=== PATIENT | female | born 1990 | race Caucasian/White ===

== ENCOUNTER → 2016-04-19 | Outpatient (CLI) | payer BC ==
[2016-04-19 09:53] LABS: MEAN CORPUSCULAR HEMOGLOBIN 30.5 pg (27.0-33.0); MEAN CORPUSCULAR HGB CONC 33.8 g/dl (32.0-36.5); MEAN CORPUSCULAR VOLUME 90.2 fl (80.0-96.0); WHITE BLOOD COUNT 5.2 K/mm3 (4.0-10.0)
[2016-04-19 10:15] LABS: ALBUMIN 3.8 GM/DL (3.2-5.2); ALBUMIN/GLOBULIN RATIO 1.36 (1.00-1.93); ALKALINE PHOSPHATASE 76 U/L (45-117); ALT/SGPT 25 U/L (12-78); ANION GAP 7 MEQ/L (8-16); AST/SGOT 18 U/L (15-37); BILIRUBIN,TOTAL 0.4 MG/DL (0.2-1.0); BLOOD UREA NITROGEN 10 MG/DL (7-18); CALCIUM LEVEL 8.8 MG/DL (8.5-10.1); CARBON DIOXIDE LEVEL 29 MEQ/L (21-32); CHLORIDE LEVEL 107 MEQ/L (98-107); CREATININE FOR GFR 0.72 MG/DL (0.55-1.02); GLOMERULAR FILTRATION RATE > 60.0 (>60); GLUCOSE, FASTING 79 MG/DL (70-105); HCG, SERUM QUANTITATIVE < 1.0 MIU/ML; POTASSIUM SERUM 3.9 MEQ/L (3.5-5.1); SODIUM LEVEL 143 MEQ/L (136-145); TOTAL PROTEIN 6.6 GM/DL (6.4-8.2)
== END ==
LOC: M LAB 09:27
PROVIDERS: ATTEND Obstetrics & Gynecology Reproductive Endocrinology
DX: N97.9 Female infertility, unspecified (principal)

== ENCOUNTER → 2016-09-08 | Outpatient (CLI) | payer BC ==
[~2016-09-08] MED LIST: AMOX875T2 PO; CHERSYP3 PO; GUAI5ELAC PO; IBUP-1114 PO; LEVA1TAB PO; LEVO250T12 PO; MONT10TA2 PO; NICO14PA TD; PRED10TA2 PO; SYMB16INH INH; TRAZO50TA PO
[2016-09-08 11:32] LABS: ESTRADIOL 1468.3 PG/ML; PROGESTERONE 33.2 NG/ML
== END ==
LOC: M LAB 08:18
PROVIDERS: ATTEND Obstetrics & Gynecology Reproductive Endocrinology
DX: N97.9 Female infertility, unspecified (principal)

== ENCOUNTER → 2016-09-13 | Outpatient (CLI) | payer BC ==
[2016-09-13 08:34] LABS: HCG, SERUM QUANTITATIVE < 1.0 MIU/ML
== END ==
LOC: M LAB 07:39
PROVIDERS: ATTEND Obstetrics & Gynecology Reproductive Endocrinology
DX: N97.9 Female infertility, unspecified (principal)

== ENCOUNTER 2016-11-13 18:07 | Emergency (ER) | payer BC ==
[~2016-11-13] VITALS: Ht 157.5 cm; Wt 84.1 kg
[2016-11-13] MEDS ORDERED: IBUP-1114 PO (18:19)
[2016-11-13] MEDS ORDERED: IPRATROPIUM 0.5MG/ALBUTEROL 2.5MG INH SOL UD 3ML (DUONEB)(J7620) NEB ONE (19:30)
[2016-11-13] MEDS ORDERED: ACETAMINOPHEN TAB 650MG DOSE (2X325MG) PO ONE (19:30)
[2016-11-13] MEDS ORDERED: LEVA1TAB PO (20:10)
[2016-11-13] MEDS ORDERED: CHERSYP3 PO (20:10)
[2016-11-13] MEDS ORDERED: LevoFLOXacin 250 MG TABLET PO ONE (20:15)
[2016-11-13 20:19] VITALS: BP 166/94
--- NOTE | 2016-11-13 20:49 | REP ---
Clinical: Cough and fever . Comparison: 11/08/2015 . Technique: PA and lateral. Findings: The mediastinum and cardiac silhouette are normal. The lung roca are clear and without acute consolidation, effusion, or pneumothorax. The skeletal structures are intact and normal. Impression: 1. No acute cardiopulmonary process. Signed by Jeff Thompson MD 11/13/2016 08:40 P
== END 2016-11-13 20:23 | disposition home or self-care (01) ==
LOC: M ED 18:07
DX: J06.9 Acute upper respiratory infection, unspecified (principal); B34.9 Viral infection, unspecified; J45.909 Unspecified asthma, uncomplicated; Z79.899 Other long term (current) drug therapy; F17.210 Nicotine dependence, cigarettes, uncomplicated

== ENCOUNTER 2016-11-17 20:34 | Inpatient (IN) | payer BC ==
[~2016-11-17] VITALS: Ht 157.5 cm; Wt 91.4 kg
[~2016-11-17 20:34] MED LIST changes: -AMOX875T2 PO; -GUAI5ELAC PO; -LEVO250T12 PO; -MONT10TA2 PO; -NICO14PA TD; -PRED10TA2 PO; -SYMB16INH INH; -TRAZO50TA PO
[2016-11-17] MEDS ORDERED: methylPREDNISolone INJ 125 MG/2 ML VIAL (J2930) IV ONE (21:00)
[2016-11-17] MEDS: IPRATROPIUM 0.5MG/ALBUTEROL 2.5MG INH SOL UD 3ML (DUONEB)(J7620) NEB SCH ×2 (21:20→21:21)
[2016-11-17 21:26] LABS: BASO # 0.1 K/mm3 (0.0-0.2); BASO % 1.5 % (0.0-1.0); EOS # 0.3 K/mm3 (0.0-0.50); EOS % 6.8 % (0.0-3.0); LARGE UNSTAINED CELL # 0.1 K/mm3 (0.0-0.4); LARGE UNSTAINED CELL % 1.9 % (0.0-4.0); LYMPH # 1.9 K/mm3 (1.5-6.5); LYMPH % 37.9 % (24.0-44.0); MEAN CORPUSCULAR HEMOGLOBIN 30.3 pg (27.0-33.0); MEAN CORPUSCULAR HGB CONC 33.8 g/dl (32.0-36.5); MEAN CORPUSCULAR VOLUME 89.8 fl (80.0-96.0); MONO # 0.3 K/mm3 (0.0-0.8); MONO % 6.4 % (0.0-5.0); NEUTROPHILS # 2.2 K/mm3 (1.8-7.7); NEUTROPHILS % 45.6 % (36.0-66.0); PLATELET COUNT, AUTOMATED 267 k/mm3 (150-450); RED CELL DISTRIBUTION WIDTH 12.1 % (11.5-14.5); WHITE BLOOD COUNT 4.7 K/mm3 (4.0-10.0)
[2016-11-17 21:39] LABS: ANION GAP 6 MEQ/L (8-16); BLOOD UREA NITROGEN 10 MG/DL (7-18); CALCIUM LEVEL 8.8 MG/DL (8.5-10.1); CARBON DIOXIDE LEVEL 29 MEQ/L (21-32); CHLORIDE LEVEL 103 MEQ/L (98-107); CREATININE FOR GFR 0.69 MG/DL (0.55-1.02); GLOMERULAR FILTRATION RATE > 60.0 (>60); GLUCOSE, FASTING 114 MG/DL (70-105); MAGNESIUM LEVEL 2.1 MG/DL (1.8-2.4); POTASSIUM SERUM 3.7 MEQ/L (3.5-5.1); SODIUM LEVEL 138 MEQ/L (136-145)
[2016-11-17] MEDS ORDERED: ISOVUE-370 76% 100ML VIAL (Q9967) As Ordered ONE (22:08)
--- NOTE | 2016-11-17 22:36 | REP ---
Clinical: Shortness of wheezing and cough . Technique: Axial contrast enhanced images from the thoracic inlet to the upper abdomen using 100 ml Isovue 370 intravenous contrast material with multiplanar re-formations. Findings: Satisfactory enhancement of the pulmonary vasculature is achieved and no filling defects are identified to suggest pulmonary embolus. Moderate bilateral lower to focal alveolar infiltrates and reactive adenopathy is consistent with multifocal pneumonia. Tracheobronchial tree is patent. No pleural effusion or pneumothorax. Further evaluation of the mediastinum demonstrates normal thoracic aorta, heart and pericardium. Surrounding musculoskeletal structures intact Impression: No evidence for pulmonary embolus. Multifocal pneumonia with reactive adenopathy. Signed by Jeff Thompson MD 11/17/2016 10:28 P
[2016-11-18] MEDS ORDERED: LEVO250T12 PO
[2016-11-18] MEDS ORDERED: GUAI5ELAC PO
[2016-11-18] MEDS ORDERED: ALBUTEROL SULFATE 2.5 MG/0.5 ML INH NEB SOLN NEB PRN
[2016-11-18 00:36] VITALS: O2SAT 94
[2016-11-18 00:45] VITALS: BP 123/71
[2016-11-18 00:54] LABS: CONTROL LINE INT CTR LINE PRESENT; HIV SCRN NEGATIVE (NEGATIVE); HIV SCRN1 NEGATIVE (NEGATIVE)
[2016-11-18] MEDS: AZITHROMYCIN INJ 500 MG, VIAL MATE ADAPTER 1 EACH in D5W 250 ML IV SCH (01:08)
--- NOTE | 2016-11-18 01:58 | HPE ---
DATE OF ADMISSION: 11/17/2016 PRIMARY CARE PROVIDER: None. HISTORY OF PRESENT ILLNESS: This patient is a 26-year-old female with a past medical history significant for frequent bronchitis and pneumonia, presented to [facility] on 11/17/2016 for persistent shortness of breath. Patient started having fever and shortness of breath and she came to [facility] on 11/12/2016 for evaluation and patient was diagnosed with bronchitis and the patient was discharged home with Levaquin. For the past several days patient has been taking her Levaquin as instructed; however, patient still continued to have shortness of breath, more significant during exertion. Fever resolved and no chills. Denied any chest pain. Denies any other associated symptoms. Patient denies any recent hospitalization or visiting any clinic or shelter. ALLERGIES: No known drug allergies. PAST MEDICAL HISTORY: Frequent bronchitis and urinary tract infection (UTI). Multiple episodes per year. PAST SURGICAL HISTORY: Bilateral fallopian tube removal in April 2016. SOCIAL HISTORY: Patient smoked a half a pack daily for 8 years. No alcohol use. No recreational drug use. HOME MEDICATIONS: - ibuprofen as needed OBJECTIVE: VITAL SIGNS: Temperature is 97.9, pulse 105, respirations 18, blood pressure 132/80, pulse oximetry is 98% in room air. GENERAL: No sign of acute distress. Alert and oriented times three. HEENT: Normocephalic, atraumatic. Extraocular motor grossly intact. CARDIOVASCULAR: Positive S1, S2, regular rate. LUNGS: Positive bilateral wheezes appreciated. There are fine crackles. ABDOMEN: Soft, nontender, nondistended, bowel sounds present. No rebound. No guarding. EXTREMITIES: No edema. No cyanosis. NEUROLOGICAL: Sensation to fine touch grossly intact. Muscle strength 5/5. LABORATORY DATA: WBC 4.7, hemoglobin 15.2, hematocrit 45.1, platelet count is 267. Sodium is 138, potassium 3.7, chloride 103, carbon dioxide is 29, BUN 10, creatinine 0.69, GFR greater than 60, fasting glucose 114, calcium 8.8, magnesium 2.1. Microbiology: None. IMAGING STUDIES: CT angiogram of the chest shows no evidence of PE. Multifocal pneumonia with reactive adenopathy. ASSESSMENT AND PLAN: 1. Multifocal pneumonia, community acquired. Patient failed on outpatient Levaquin therapy. Will start a trial of Rocephin, azithromycin. Will also follow with a sputum culture and respiratory panel. Patient will have breathing treatments as needed. 2. History of frequent bronchitis and pneumonia. Will follow with HIV testing. 3. Deep venous thrombosis (DVT) prophylaxis. On Lovenox. edited: 11/19/2016 [id number] tkf USAMA
[2016-11-18] MEDS: cefTRIAXone SOD 1 GM in D5W MINI-BAG PLUS 50 ML IV SCH ×2 (02:26→13:37)
[2016-11-18] MEDS: ACETAMINOPHEN TAB 650MG DOSE (2X325MG) PO PRN ×2 (05:53→10:10)
[2016-11-18 06:00] VITALS: BP 114/61
[2016-11-18 06:59] LABS: MEAN CORPUSCULAR HEMOGLOBIN 30.7 pg (27.0-33.0); MEAN CORPUSCULAR HGB CONC 34.8 g/dl (32.0-36.5); MEAN CORPUSCULAR VOLUME 88.3 fl (80.0-96.0); RED CELL DISTRIBUTION WIDTH 11.7 % (11.5-14.5); WHITE BLOOD COUNT 3.2 K/mm3 (4.0-10.0)
[2016-11-18 07:12] LABS: ANION GAP 8 MEQ/L (8-16); BLOOD UREA NITROGEN 8 MG/DL (7-18); CALCIUM LEVEL 8.7 MG/DL (8.5-10.1); CARBON DIOXIDE LEVEL 25 MEQ/L (21-32); CHLORIDE LEVEL 103 MEQ/L (98-107); CREATININE FOR GFR 0.65 MG/DL (0.55-1.02); GLOMERULAR FILTRATION RATE > 60.0 (>60); GLUCOSE, FASTING 143 MG/DL (70-105); POTASSIUM SERUM 4.1 MEQ/L (3.5-5.1); SODIUM LEVEL 136 MEQ/L (136-145)
--- NOTE | 2016-11-18 07:50 | REP ---
Clinical: shortness of breath. Wheezing.. Comparison: 11/13/2016. Technique: PA and lateral. Findings: The mediastinum and cardiac silhouette are normal. The lung roca demonstrate bibasilar infiltrates/atelectasis without effusion, or pneumothorax. The skeletal structures are intact and normal. Impression: 1. Bibasilar infiltrate/atelectasis Signed by Jeff Thompson MD 11/18/2016 07:42 A
[2016-11-18] MEDS: ENOXAPARIN 40 MG/0.4 ML SYRINGE (J1650) SC SCH (08:50)
[2016-11-18] MEDS ORDERED: IPRATROPIUM 0.5MG/ALBUTEROL 2.5MG INH SOL UD 3ML (DUONEB)(J7620) NEB PRN (12:30)
[2016-11-18] MEDS: IPRATROPIUM 0.5MG/ALBUTEROL 2.5MG INH SOL UD 3ML (DUONEB)(J7620) NEB SCH ×2 (13:19→20:34)
[2016-11-18 14:00] VITALS: BP 143/78
--- NOTE | 2016-11-18 17:28 | IPN ---
DATE: 11/18/2016 Patient was admitted overnight. Continues to report cough. Denies any fevers or chills. Continues to report generalized weakness. VITAL SIGNS: Temperature 98.1, pulse 97, respirations 18, blood pressure 143/78, pulse oximetry 97% on room air. LABORATORY DATA: WBC 3.2, hemoglobin and hematocrit 14.4/41.3, platelets 273. Chemistry: Sodium 136, potassium 4.1, chloride 103, bicarbonate 25, BUN 8, creatinine 0.65. C-reactive protein 1.01. PHYSICAL EXAMINATION: GENERAL: Patient alert and oriented times three in no acute distress. HEENT: Normocephalic, atraumatic. PULMONARY: Bilateral wheezes with fine crackles bilateral. ABDOMEN: Soft and nontender. Positive bowel sounds. EXTREMITIES: No clubbing, cyanosis, or edema. ASSESSMENT AND PLAN: This is a 26-year-old female patient with underlying medical history of frequent bronchitis, smoker, presented with persistent cough, having fevers a couple of days ago but have subsequently resolved. Failure to improve with Levaquin. Found to have multifocal infiltrates with lymphadenopathy. 1. Multifocal pneumonia, pulmonary infiltrates with persistent cough. Possible differentials include multifocal pneumonia. Patient's calcium is negative but possible sarcoid, asthma exacerbation, eosinophilic pneumonia. Will get IgE levels, Solu-Medrol, Rocephin, and Zithromax. Doubtful patient has bacterial infection. Respiratory panel has been negative. Consulted public address system mechanic, Dr. Bashir. Doubtful bacterial pneumonia given erythrocyte sedimentation rate (ESR), C-reactive protein (CRP) are minimal. Followup cultures. Continue antibiotics and steroids for now. Followup IgE levels and follow pulmonary consultations, nebulizer treatment. 2. Smoking. Counseling provided. 3. History of frequent bronchitis and pneumonia. Followup pulmonology for further recommendation. HIV testing. 4. Deep vein thrombosis (DVT) prophylaxis. Lovenox subcutaneous. DISPOSITION PLANNING: Pending clinical improvement, pulmonary consultation, and further workup.
[2016-11-18] MEDS: methylPREDNISolone INJ 125 MG/2 ML VIAL (J2930) IV SCH (17:45)
[2016-11-18 19:30] LABS: IMMUNOGLOBULIN E 57.7 IU/ML (<100)
[2016-11-18 20:10] VITALS: BP 138/80
[2016-11-19] MEDS: AZITHROMYCIN INJ 500 MG, VIAL MATE ADAPTER 1 EACH in D5W 250 ML IV SCH (00:52)
[2016-11-19] MEDS: methylPREDNISolone INJ 125 MG/2 ML VIAL (J2930) IV SCH ×2 (02:23→10:34)
[2016-11-19] MEDS: cefTRIAXone SOD 1 GM in D5W MINI-BAG PLUS 50 ML IV SCH ×2 (02:23→14:19)
[2016-11-19] MEDS: IPRATROPIUM 0.5MG/ALBUTEROL 2.5MG INH SOL UD 3ML (DUONEB)(J7620) NEB SCH ×5 (02:34→20:06)
[2016-11-19 05:55] VITALS: BP 120/67
[2016-11-19 06:49] LABS: BASO % 0.2 % (0.0-1.0); EOS % 0.1 % (0.0-3.0); LARGE UNSTAINED CELL # 0.2 K/mm3 (0.0-0.4); LARGE UNSTAINED CELL % 2.4 % (0.0-4.0); LYMPH # 0.9 K/mm3 (1.5-6.5); LYMPH % 11.2 % (24.0-44.0); MEAN CORPUSCULAR HGB CONC 34.4 g/dl (32.0-36.5); MONO # 0.2 K/mm3 (0.0-0.8); MONO % 2.3 % (0.0-5.0); NEUTROPHILS # 6.4 K/mm3 (1.8-7.7); NEUTROPHILS % 83.7 % (36.0-66.0); PLATELET COUNT, AUTOMATED 290 k/mm3 (150-450); RED CELL DISTRIBUTION WIDTH 11.9 % (11.5-14.5); WHITE BLOOD COUNT 7.7 K/mm3 (4.0-10.0)
[2016-11-19 07:10] LABS: ANION GAP 11 MEQ/L (8-16); BLOOD UREA NITROGEN 10 MG/DL (7-18); CALCIUM LEVEL 8.3 MG/DL (8.5-10.1); CARBON DIOXIDE LEVEL 23 MEQ/L (21-32); CHLORIDE LEVEL 108 MEQ/L (98-107); CREATININE FOR GFR 0.65 MG/DL (0.55-1.02); GLOMERULAR FILTRATION RATE > 60.0 (>60); GLUCOSE, FASTING 124 MG/DL (70-105); SODIUM LEVEL 142 MEQ/L (136-145)
[2016-11-19] MEDS: ENOXAPARIN 40 MG/0.4 ML SYRINGE (J1650) SC SCH (08:26)
[2016-11-19] MEDS ORDERED: INFLUENZA QUADRIVALENT PF VACCINE 0.5ML SYRINGE (90686) IM ONE (09:00)
--- NOTE | 2016-11-19 12:01 | IPNPDOC ---
Date Seen The patient was seen on 11/19/16. Progress Note SUBJECTIVE: Patient is a 26-year-old female with bilateral lower and focal pulmonary infiltrates. Patient is evaluated at bedside this morning. She has no acute complaints overnight. Denies joint pain, rashes, dry eyes, dry mouth, numbness, tingling. She reports that since her breathing treatments she feels as if she is able to breath a bit easier. She admits to expectorating mucous, but sputum culture returned as negative. She denies a confirmed diagnosis of asthma and admits to only using her albuterol inhaler approximately twice a year when this type of exacerbation occurs. Admits to a paternal family history of rheumatoid arthritis. No leukocytosis or fever. HIV is negative as is the respiratory panel and blood culture. Evaluating for possible underlying autoimmune diseases. Pulmonology has been consulted and we appreciate their continued assistance. Denies ever being evaluated by an developmental therapist. OBJECTIVE PHYSICAL EXAMINATION: VITAL SIGNS: Please see below. GENERAL: Well nourished, well developed female, appears stated age, no acute distress, alert and conversant HEENT: Atraumatic, normocephalic, PERRL, EOMI, oral mucosa appears pink and moist, nasal septum appears midline, nares are patent CARDIOVASCULAR: Regular rate and rhythm, normal S1 and S2, no murmur, rub, click RESPIRATORY: Expiratory wheezes appreciated medially bilaterally, fine crackles appreciated along the lower lung lobes bilaterally, adequate airway excursion in the upper lung lobes bilaterally ABDOMINAL: Soft, non-tender, non-distended, bowel sounds appreciated EXTREMITIES: Peripheral pulses appreciated in upper and lower extremities bilaterally, equal, symmetrical, +2/4, without edema NEUROLOGICAL: CN II-XII appear grossly intact PSYCHOLOGICAL: Alert and conversant, pleasant LABORATORY DATA: Please see below. MICROBIOLOGY: Please see below. DVT prophylaxis ordered?: Lovenox 40mg SC daily ASSESSMENT AND PLAN: This is a 26-year-old female with bilateral pulmonary infiltrates. PROBLEMS: 1. Bilateral pulmonary infiltrates: CT chest suggested multifocal pneumonia. No leukocytosis of fever documented. Patient remains on antibiotics - Azithromycin and Rocephin. Continue with DuoNebs, Albuterol inhaler, and SoluMedrol Continues to have a productive cough, but sputum culture was negative as was respiratory panel. Blood culture negative. Consulted pulmonology and continue to appreciate their assistance. Obtaining autoimmune levels - RADHA, dsDNA, RF, scl-70, and quantiferon gold test to rule out possible causes for what is seen on imaging. Report reports subjective improvement in breathing. 2. Tobacco dependence: Nicotine patch. DISPOSITION: Appreciate the assistance of pulmonology. Autoimmune work-up pending. VS, I&O, 24H, Fishbone Vital Signs/I&O Vital Signs Date Time Temp Pulse Resp B/P (MAP) Pulse Ox O2 Delivery O2 Flow Rate FiO2 11/19/16 11:24 Room Air 11/19/16 05:55 97.6 108 16 120/67 (84) 95 I&O- Last 24 Hours up to 6 AM 11/19/16 06:00 Intake Total 1315 ml Output Total 1300 ml Balance 15 ml Laboratory Data 24H LABS Laboratory Tests 2 11/19/16 06:07: White Blood Count 7.7, Red Blood Count 4.42, Hemoglobin 13.7, Hematocrit 39.7, Mean Corpuscular Volume 90.0, Mean Corpuscular Hemoglobin 31.0, Mean Corpuscular Hemoglobin Concent 34.4, Red Cell Distribution Width 11.9, Platelet Count 290, Neutrophils (%) (Auto) 83.7H, Lymphocytes (%) (Auto) 11.2L, Monocytes (%) (Auto) 2.3, Eosinophils (%) (Auto) 0.1, Basophils (%) (Auto) 0.2, Neutrophils # (Auto) 6.4, Lymphocytes # (Auto) 0.9L, Monocytes # (Auto) 0.2, Eosinophils # (Auto) 0.0, Basophils # (Auto) 0.0, Large Unclassified Cells % 2.4 , Large Unclassified Cells # 0.2, Anion Gap 11, Glomerular Filtration Rate > 60.0, Blood Urea Nitrogen 10, Creatinine 0.65, Sodium Level 142, Potassium Level 4.0, Chloride Level 108H, Carbon Dioxide Level 23, Calcium Level 8.3L, C- Reactive Protein, Quantitative 0.40H 11/19/16 10:52: CBC/BMP Laboratory Tests 11/19/16 06:07 Red Blood Count 4.42, Mean Corpuscular Volume 90.0, Mean Corpuscular Hemoglobin 31.0, Mean Corpuscular Hemoglobin Concent 34.4, Red Cell Distribution Width 11.9 , Neutrophils (%) (Auto) 83.7 H, Lymphocytes (%) (Auto) 11.2 L, Monocytes (%) ( Auto) 2.3, Eosinophils (%) (Auto) 0.1, Basophils (%) (Auto) 0.2, Neutrophils # ( Auto) 6.4, Lymphocytes # (Auto) 0.9 L, Monocytes # (Auto) 0.2, Eosinophils # ( Auto) 0.0, Basophils # (Auto) 0.0, Calcium Level 8.3 L Microbiology Microbiology 11/18/16 Blood Culture - Preliminary, Resulted No growth after 24 hours . All specim... 11/18/16 Blood Culture - Preliminary, Resulted No growth after 24 hours . All specim... 11/18/16 Gram Stain - Final, Resulted 11/18/16 Sputum Culture, Resulted Pending 11/18/16 Respiratory Virus Panel (PCR) ([facility]) - Final, Complete GME ATTESTATION GME ATTESTATION My preceptor for this patient encounter was physically present in the building during the encounter and was fully available. As needed, all aspects of the patient interview, examination, medical decision making process, and medical care plan development were reviewed and approved by the preceptor. Preceptor is aware and concurs with the plan as stated in the body of this note and will attest to such by his/her cosignature. ATTENDING NOTE I have both independently examined this patient as well as reviewed the note. I have discussed in detail with the resident the findings and plan of treatment as documented in the residents note. I will continue to follow the patient and offer further guidance to the patients care as necessary during this hospital stay. LIBBY Gleason MD Nov 19, 2016 12:01 BETHEL AUGUST MD Dec 06, 2016 18:46
[2016-11-19] MEDS: NICOTINE 14 MG/24 HR TRANSDERMAL TD SCH (12:16)
[2016-11-19 14:00] VITALS: BP 143/81
--- NOTE | 2016-11-19 20:52 | CR ---
DATE OF CONSULTATION: 11/19/2016 CHIEF COMPLAINT: Shortness of breath. HISTORY OF PRESENT ILLNESS: This is a 26-year-old female with a past medical history of seasonal allergies,tobacco abuse disorder, intermittent bronchitis and pneumonia. We were consulted by Dr. Edwards for shortness of breath, abnormal chest CT and eosinophilia. The patient states that she has been short of breath for one week since 11/12/2016. The patient came to [facility] emergency room on 11/13/2016 and had a fever of 101.6. At the emergency room visit, she states that she was complaining of malaise, chest congestion, and a nonproductive cough. The patient states that she was given Levaquin in the emergency room before being discharged from the emergency room. The patient states that her fever went away after taking the Levaquin, but her symptoms of malaise still progressed. On 11/17/2016, the patient went to [place] urgent care complaining of the same symptoms without the fever, but she was then sent to [facility] emergency room via ambulance for further care. The patient denies any knowledge of having any fevers at the 11/17/2016 emergency room visit. She does admit to still having the malaise, chest congestion, and the nonproductive cough. Since admission to the hospital on 11/17/2016, the patient has been placed on ceftriaxone and Zithromax intravenously. The patient is seen today and states that she is feeling "okay." She does complain of being winded when she gets up and walks around. The patient states that she currently has a postnasal drip and a hoarse voice from constantly coughing. The patient states that currently she has a productive cough that is yellow in color and cloudy. She states this morning she had one episode of a small amount of blood tinged sputum. The patient also admits to getting the flu vaccination during this hospital admission. REVIEW OF SYSTEMS: : GENERAL: Denies current fever. Denies chills. No weight changes, sleep disturbance. Does admit to having night sweats and fatigue. HEENT: Denies headaches, blurry vision, ringing in ears. Denies eye discharge, ear discharge. Admits to postnasal drip. CARDIOLOGY: The patient admits to having palpitations when coughing and chest tightening and pain after a cough, noncardiac in manner. RESPIRATORY: Positive for shortness of breath on exertion but not at rest. Positive yellow productive cough, as per history of present illness. GASTROINTESTINAL: Denies any abdominal pain, nausea, vomiting, constipation, diarrhea. No difficulty swallowing. : No burning or pain with urination. No hematuria. MUSCULOSKELETAL: Denies any aches or pains or joint pain or lower back pain. NEUROLOGIC: Denies dizziness, loss of consciousness, numbness or tingling. No unilateral weakness. SKIN: Denies any rash or itch. Allergy/Immunology: No known immunodeficiencies, reports seasonal allergies with occasional nasal congestion PSYCHIATRIC: Denies any anxiety, depression, or thoughts of harming herself or others Sleep: No history of sleep apnea, No snoring or witnessed apneas. Endo: No history of dm or hypothyroidism. No hot or cold intolerance, No polyuria or polydipsia. PAST MEDICAL HISTORY: 1. Seasonal allergies. 2. Intermittent bronchitis, history of one to two times a year. 3. Hx of pneumonia. HOME MEDICATIONS: - ibuprofen 800 mg as needed for aches and pains over the counter - Equate as needed for allergy symptoms ALLERGIES: No known drug allergies. Does admit to seasonal. PAST SURGICAL HISTORY: Bilateral tubal ligations in April 2016. OBSTETRICAL HISTORY: The patient is 0, para 0. IVF trial in June 2016 to August 2016. The patient is currently not . PAST HOSPITALIZATIONS: No known past hospitalizations. FAMILY HISTORY: Mother with no known medical problems. Father with a history of hypertension. One sister with asthma. SOCIAL HISTORY: She is and lives with her six kittens and one dog. She admits to drinking about three to five cans of soda, plus/minus two cups of coffee. The patient does admit to being a smoker, currently smokes a half of pack per day for the past 8 to 10 years. She denies using any recreational drugs. 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 VITAL SIGNS: Temperature 98.2, pulse 122, respiratory rate 18, blood pressure 143/81 (mean arterial pressure of 101), pulse oximetry 90% on room air. PHYSICAL EXAMINATION: GENERAL: The patient is a pleasant 26-year-old female sitting comfortably up in her bed in no acute distress. A and O x3. HEENT: Moist mucous membranes. Mild pharyngeal/tonsillar erythema but no exudate. Mallampati 1. tongue is midline. NECK: Supple. Trachea midline. No mass, no thyromegaly, no bruits. CARDIAC: Tachycardic. Sinus rhythm. No rubs or murmurs. No gallops appreciated. No elevated JVP. LUNGS: Clear to auscultation on the left posterior lobe. Upper right lobe expiratory wheezing appreciated. Clear to auscultate on the lower right lobe. No rhonchi or crackles appreciated. Normal chest expansion, no dullness to percussion, no accessory muscle use. ABDOMEN: Bowel sounds are positive. Nondistended, nontender. No masses or hepatosplenomegaly. MUSCULOSKELETAL: Strength is 5/5 bilaterally in all planes tested. SKIN: No rashes were appreciated. PSYCHIATRIC: Affect appropriate. LABORATORY DATA: WBC 7.7, hemoglobin 13.7, hematocrit 39.7, platelets of 290. Chemistries: Sodium of 142, potassium 4.0, chloride 108, carbon dioxide 23, anion gap of 11, BUN 10, creatinine 0.65, fasting glucose of 124, calcium of 8.3 , C-reactive protein of 0.40. IMMUNOLOGY: IgE 57.7, rheumatoid factor less than 10.0. Gram stain is final and is negative. Sputum cultures are currently pending. Blood culture with no growth at 24 hours times two. Respiratory viral panel negative. IMAGING: Angiographic CT was reviewed by me and Dr. Bashir, we see a peribronchial inflammation that is consistent with probable bronchiolitis versus air trapping. There is possible early bronchiectasis. ASSESSMENT AND PLAN: 1. Abnormal CT with peribronchial inflammation consistent with bronchiolitis. 2. Acute versus post acute respiratory infection with likely underlying asthma. 3. Eosinophilia. PLAN: For the abnormal CT, we think the patient has a smoker bronchiolitis and we recommend the patient to do smoking cessation. We recommend her to followup outpatient for pulmonary function tests as well. We are going to discontinue her IV ceftriaxone, azithromycin, and start the patient on Augmentin 875 mg for five days. The patient is also to start a steroid taper for 40 mg for five days, 30 mg for 5 days, 20 mg for 5 days, and lastly 10 mg for 5 days. The patient will also be discharged on Symbicort one puff twice a day, Singulair 10 mg once a day, and she is to followup with Dr. Bashir outpatient in one month where we will go over all lab results from blood work obtained here at the hospital and initiate work up for possible asthma. My preceptor for this patient encounter was Dr. Bashir. The preceptor was physically present in the room during the encounter and was fully available. As needed, all aspects of the patient interview, examination, medical decision making process, and medical care plan development were reviewed and approved by the preceptor. The preceptor is aware and concurs with the plan as stated in the body of this note and will attest to such by her cosignature. I, Yovani Bashir, agree with the above. I believe the patient has a post infectious syndrome with likely underlying asthma. I also suspect smoker's bronchiolitis. I performed and independent history and physical and agree with the assessment and plan as outlined above. USAMA
[2016-11-19] MEDS ORDERED: MONTELUKAST 10 MG TAB PO SCH (21:00)
[2016-11-19] MEDS: SYMBICORT 160/4.5MCG INHALER 6GM INH SCH (21:00)
[2016-11-19 22:00] VITALS: BP 133/71
[2016-11-19] MEDS ORDERED: methylPREDNISolone INJ 125 MG/2 ML VIAL (J2930) IV SCH (22:00)
[2016-11-20] MEDS: IPRATROPIUM 0.5MG/ALBUTEROL 2.5MG INH SOL UD 3ML (DUONEB)(J7620) NEB SCH ×2 (01:30→08:28)
[2016-11-20 05:25] VITALS: BP 119/77
[2016-11-20 06:39] LABS: BASO % 0.2 % (0.0-1.0); EOS # 0.1 K/mm3 (0.0-0.50); EOS % 0.8 % (0.0-3.0); LARGE UNSTAINED CELL # 0.2 K/mm3 (0.0-0.4); LARGE UNSTAINED CELL % 2.1 % (0.0-4.0); LYMPH # 3.3 K/mm3 (1.5-6.5); LYMPH % 29.7 % (24.0-44.0); MEAN CORPUSCULAR HEMOGLOBIN 30.2 pg (27.0-33.0); MEAN CORPUSCULAR HGB CONC 33.2 g/dl (32.0-36.5); MEAN CORPUSCULAR VOLUME 90.9 fl (80.0-96.0); MONO # 0.5 K/mm3 (0.0-0.8); NEUTROPHILS # 6.3 K/mm3 (1.8-7.7); PLATELET COUNT, AUTOMATED 287 k/mm3 (150-450); RED CELL DISTRIBUTION WIDTH 12.3 % (11.5-14.5); WHITE BLOOD COUNT 10.2 K/mm3 (4.0-10.0)
[2016-11-20 06:49] LABS: ANION GAP 8 MEQ/L (8-16); BLOOD UREA NITROGEN 13 MG/DL (7-18); CALCIUM LEVEL 8.5 MG/DL (8.5-10.1); CARBON DIOXIDE LEVEL 27 MEQ/L (21-32); CHLORIDE LEVEL 110 MEQ/L (98-107); CREATININE FOR GFR 0.65 MG/DL (0.55-1.02); GLOMERULAR FILTRATION RATE > 60.0 (>60); GLUCOSE, FASTING 91 MG/DL (70-105); POTASSIUM SERUM 4.1 MEQ/L (3.5-5.1); SODIUM LEVEL 145 MEQ/L (136-145)
[2016-11-20] MEDS: NICOTINE 14 MG/24 HR TRANSDERMAL TD SCH (08:31)
[2016-11-20] MEDS ORDERED: AUGMENTIN 875 MG TAB PO SCH (09:00)
[2016-11-20] MEDS ORDERED: predniSONE 20 MG TAB PO SCH (09:00)
[2016-11-20] MEDS ORDERED: PRED10TA2 PO (09:30)
[2016-11-20] MEDS ORDERED: MONT10TA2 PO (09:30)
[2016-11-20] MEDS ORDERED: SYMB16INH INH (09:30)
[2016-11-20] MEDS ORDERED: AMOX875T2 PO (09:30)
[2016-11-20] MEDS: SYMBICORT 160/4.5MCG INHALER 6GM INH SCH (11:43)
--- NOTE | 2016-11-20 12:58 | DS.PDOC ---
Discharge Summary General Date of Admission Nov 17, 2016 at 23:52 Date of Discharge 11/20/2016 Attending Physician: MARIANGEL Specialist/Consultants Involve: ART Discharge Summary PROCEDURES PERFORMED DURING STAY: None. ADMITTING DIAGNOSES: 1. Multifocal pneumonia, community-acquired. 2. History of frequent bronchitis and pneumonia. DISCHARGE DIAGNOSES: 1. Multifocal pneumonia. 2. Tobacco dependence. 3. History of frequent bronchitis and pneumonia. COMPLICATIONS/CHIEF COMPLAINT: Multifocal Pnuemonia. HISTORY OF PRESENT ILLNESS: Ms. Fox is a 26-year-old female with a past medical history significant for frequent bronchitis and pneumonia, presented to [facility] on 11/17/2016 for persistent shortness of breath. Patient started having fever and shortness of breath and she came to [facility] on 11/12/2016 for evaluation and patient was diagnosed with bronchitis and the patient was discharged home with Levaquin. For the past several days patient has been taking her Levaquin as instructed; however, patient still continued to have shortness of breath, more significant during exertion. Fever resolved and no chills. Denied any chest pain. Denies any other associated symptoms. Patient denies any recent hospitalization or visiting any clinic or care home. HOSPITAL COURSE: Patient was admitted and started on Rocephin and azithromycin. Sputum, respiratory, and blood cultures were obtained and all came back negative. HIV screening was negative. TB test is pending. Autoimmune workup returned and was mostly negative. Some results. Pending. Patient was placed on Lovenox for deep venous thrombosis prophylaxis. Nicotine patch was provided for smoking cessation. Pulmonology was consulted and changed patient's antibiotics to Augmentin. DuoNeb's were administered and patient's respiratory status. Patient was started on Solu-Medrol and tapering steroid was provided at time of discharge. Patient had a mild leukocytosis likely secondary to steroid administration. An allergy workup was obtained and patient is to follow up with pulmonology for the results. Pulmonology also recommended that patient continue with Symbicort and start montelukast. Patient improved significantly throughout hospitalization and had returned to baseline at time of discharge. Patient was stable for discharge. DISCHARGE MEDICATIONS: Please see below. ALLERGIES: Please see below. PHYSICAL EXAMINATION ON DISCHARGE: VITAL SIGNS: Please see below. GENERAL: Well nourished, well developed female, appears stated age, no acute distress, alert and conversant HEENT: Atraumatic, normocephalic, PERRL, EOMI, oral mucosa appears pink and moist, nasal septum appears midline, nares are patent NECK: Supple, trachea midline, no lymphadenopathy appreciated CARDIOVASCULAR: Regular rate and rhythm, normal S1 and S2, no murmur, rub, click RESPIRATORY: Fine crackles appreciated along the lower lung lobes on the left, adequate airway excursion in the upper lung lobes bilaterally ABDOMINAL: Soft, non-tender, non-distended, bowel sounds appreciated EXTREMITIES: Peripheral pulses appreciated in upper and lower extremities bilaterally, equal, symmetrical, +2/4, without edema SKIN: On, dry, intact, without edema NEUROLOGICAL: CN II-XII appear grossly intact PSYCHOLOGICAL: Alert and conversant, pleasant LABORATORY DATA: Please see below. IMAGING: Chest x-ray, two-view IMPRESSION: 1. Bibasilar infiltrate/atelectasis CT chest angiography IMPRESSION: No evidence for pulmonary embolus. Multifocal pneumonia with reactive adenopathy. PROGNOSIS: Stable. ACTIVITY: As tolerated. DIET: Regular. DISCHARGE PLAN: Continue with antibiotic for the next 5 days. Complete tapering steroid dose. Continue taking montelukast last and Symbicort as prescribed. Follow up with Dr. Bashir in 4 weeks. Establish care with a primary care provider at the [facility]. Return to the nearest hospital if symptoms persist or worsen. DISPOSITION: Home. DISCHARGE INSTRUCTIONS: 1. Continue with antibiotic regimen as prescribed. 2. Continue tapering dose of steroid. 3. Continue with montelukast and Symbicort as outlined. 4. Establish care with primary care provider at [facility]. ITEMS TO FOLLOWUP ON ON OUTPATIENT: 1. Multifocal pneumonia. 2. Smoking cessation. DISCHARGE CONDITION: Stable. TIME SPENT ON DISCHARGE: Greater than 30 minutes. Vital Signs/I&Os Vital Signs Date Time Temp Pulse Resp B/P (MAP) Pulse Ox O2 Delivery O2 Flow Rate FiO2 11/20/16 08:40 Room Air 11/20/16 05:25 97.2 87 16 119/77 (91) 96 I&O- Last 24 Hours up to 6 AM 11/20/16 05:59 Intake Total 820 ml Output Total 750 ml Balance 70 ml Laboratory Data Labs 24H Laboratory Tests 2 11/20/16 06:06: White Blood Count 10.2H, Red Blood Count 4.35, Hemoglobin 13.1, Hematocrit 39.5 , Mean Corpuscular Volume 90.9, Mean Corpuscular Hemoglobin 30.2, Mean Corpuscular Hemoglobin Concent 33.2, Red Cell Distribution Width 12.3, Platelet Count 287, Neutrophils (%) (Auto) 62.0, Lymphocytes (%) (Auto) 29.7, Monocytes ( %) (Auto) 5.0, Eosinophils (%) (Auto) 0.8, Basophils (%) (Auto) 0.2, Neutrophils # (Auto) 6.3, Lymphocytes # (Auto) 3.3, Monocytes # (Auto) 0.5, Eosinophils # (Auto) 0.1, Basophils # (Auto) 0.0, Large Unclassified Cells % 2.1 , Large Unclassified Cells # 0.2, Anion Gap 8, Glomerular Filtration Rate > 60.0 , Blood Urea Nitrogen 13, Creatinine 0.65, Sodium Level 145, Potassium Level 4.1 , Chloride Level 110H, Carbon Dioxide Level 27, Calcium Level 8.5, C-Reactive Protein, Quantitative < 0.30 CBC/BMP Laboratory Tests 11/20/16 06:06 Red Blood Count 4.35, Mean Corpuscular Volume 90.9, Mean Corpuscular Hemoglobin 30.2, Mean Corpuscular Hemoglobin Concent 33.2, Red Cell Distribution Width 12.3 , Neutrophils (%) (Auto) 62.0, Lymphocytes (%) (Auto) 29.7, Monocytes (%) (Auto ) 5.0, Eosinophils (%) (Auto) 0.8, Basophils (%) (Auto) 0.2, Neutrophils # (Auto ) 6.3, Lymphocytes # (Auto) 3.3, Monocytes # (Auto) 0.5, Eosinophils # (Auto) 0.1, Basophils # (Auto) 0.0, Calcium Level 8.5 Microbiology Microbiology 11/18/16 Blood Culture - Preliminary, Resulted No Growth after 48 hours. All Specime... 11/18/16 Blood Culture - Preliminary, Resulted No Growth after 48 hours. All Specime... 11/18/16 Gram Stain - Final, Complete 11/18/16 Sputum Culture - Final, Complete 11/18/16 Respiratory Virus Panel (PCR) ([facility]) - Final, Complete Discharge Medications Scheduled Amoxicillin/Clavulanate Potas (Amoxicillin/Clavulanate P 875-125 mg) 1 Tab Tab, 875 MG PO BID Budesonide/Formoterol (Symbicort 160-4.5 Mcg/Act) 60 Puff/Inhaler Aers, 1 PUFF INH BID Montelukast Sodium (Montelukast Sodium) 10 Mg Tab, 10 MG PO QHS Prednisone (Prednisone) 10 Mg Tab, 10 MG PO TAPER Take 4 tabs daily x 5 days, then 3 tabs daily x 5 days, then 2 tabs daily x 5 days, then 1 tab daily x 5 days and stop Scheduled PRN Guaifenesin/Codeine (Guaifenesin/Codeine 100-10 mg/5Ml) 5 Ml Syrp, 10 ML PO Q6H PRN for COUGH, (Reported) Allergies Coded Allergies: No Known Allergies (Unverified , 11/13/16) GME ATTESTATION GME ATTESTATION My preceptor for this patient encounter was physically present in the building during the encounter and was fully available. As needed, all aspects of the patient interview, examination, medical decision making process, and medical care plan development were reviewed and approved by the preceptor. Preceptor is aware and concurs with the plan as stated in the body of this note and will attest to such by his/her cosignature. ATTENDING NOTE I have both independently examined this patient as well as reviewed the note. I have discussed in detail with the resident the findings and plan of treatment as documented in the residents note. I will continue to follow the patient and offer further guidance to the patients care as necessary during this hospital stay. LIBBY Gleason MD-I Nov 20, 2016 12:58 BETHEL AUGUST MD Dec 06, 2016 18:50
[2016-11-23 10:14] LABS: D001-IgE D pteronyssinus 0.44 kU/L (Class I); E001-IgE Cat Epith/Dander < 0.10 kU/L (Class 0); E005-IgE Dog Dander < 0.10 kU/L (Class 0); G002-IgE Bermuda Grass < 0.10 kU/L (Class 0); G008-IgE Kentucky Bluegrass 0.18 kU/L (Class 0/I); M001-IgE Penicillium chrysogen < 0.10 kU/L (Class 0); M002 IgE Cladosporium herbaru < 0.10 kU/L (Class 0); M003 IgE Aspergillus fumigatu < 0.10 kU/L (Class 0); M006-IgE Alternaria alternata < 0.10 kU/L (Class 0); T001-IgE Maple/Box Elder < 0.10 kU/L (Class 0); T003-IgE Common Silver Birch < 0.10 kU/L (Class 0); T007-IgE Oak, White < 0.10 kU/L (Class 0); T008-IgE Elm, American < 0.10 kU/L (Class 0); T015-IgE Ash, White < 0.10 kU/L (Class 0); T041-IgE Hickory, White < 0.10 kU/L (Class 0); W001-IgE Ragweed, Short 6.31 kU/L (Class IV); W009-IgE Plantain, English < 0.10 kU/L (Class 0); W014-IgE Pigweed, Rough < 0.10 kU/L (Class 0); W018-IgE Sheep Sorrel < 0.10 kU/L (Class 0)
[2016-11-23 14:14] LABS: ANTI SCLERODERMA ANTIBODIES <0.2 AI (0.0-0.9)
== END 2016-11-20 13:45 | disposition home or self-care (01) | DRG 139 ==
LOC: M ED 20:34 → M ED INP 23:52 → M MSPAV 11-18 00:44
PROVIDERS: ADMIT Internal Medicine; ATTEND Hospitalist
DX: J18.9 Pneumonia, unspecified organism (principal); F17.200 Nicotine dependence, unspecified, uncomplicated

== ENCOUNTER 2017-01-01 18:05 | Inpatient (IN) | payer BC ==
[~2017-01-01] VITALS: Ht 160 cm; Wt 90.0 kg
[~2017-01-01 18:05] MED LIST changes: +AMOX875T2 PO; +GUAI5ELAC PO; +LEVO250T12 PO; +MONT10TA2 PO; +PRED10TA2 PO; +SYMB16INH INH
[2017-01-01 18:34] LABS: MEAN CORPUSCULAR HEMOGLOBIN 30.7 pg (27.0-33.0); MEAN CORPUSCULAR HGB CONC 34.6 g/dl (32.0-36.5); MEAN CORPUSCULAR VOLUME 88.8 fl (80.0-96.0); PLATELET COUNT, AUTOMATED 303 10^3/uL (150-450); RED CELL DISTRIBUTION WIDTH 12.1 % (11.5-14.5); WHITE BLOOD COUNT 5.6 10^3/uL (4.0-10.0)
[2017-01-01 18:57] LABS: CONTROL LINE HCG INT CTR LINE PRESENT
[2017-01-01 19:10] LABS: ALBUMIN 4.1 GM/DL (3.2-5.2); ALBUMIN/GLOBULIN RATIO 1.41 (1.00-1.93); ALKALINE PHOSPHATASE 63 U/L (45-117); ALT/SGPT 24 U/L (12-78); ANION GAP 10 MEQ/L (8-16); AST/SGOT 13 U/L (7-37); BILIRUBIN,DIRECT < 0.1 MG/DL (0.0-0.2); BILIRUBIN,TOTAL 0.3 MG/DL (0.2-1.0); BLOOD UREA NITROGEN 15 MG/DL (7-18); CARBON DIOXIDE LEVEL 22 MEQ/L (21-32); CHLORIDE LEVEL 110 MEQ/L (98-107); CREATININE FOR GFR 0.79 MG/DL (0.55-1.02); GLOMERULAR FILTRATION RATE > 60.0 (>60); GLUCOSE, FASTING 97 MG/DL (70-105); POTASSIUM SERUM 3.4 MEQ/L (3.5-5.1); SODIUM LEVEL 142 MEQ/L (136-145)
[2017-01-01] MEDS ORDERED: ACETAMINOPHEN TAB 650MG DOSE (2X325MG) PO PRN (22:30)
[2017-01-01] MEDS ORDERED: MOM 30ML SUSPENSION UDC PO PRN (22:30)
[2017-01-01] MEDS ORDERED: MAALOX 30 ML SUSP *UDC PO PRN (22:30)
[2017-01-01] MEDS ORDERED: traZODone 50 MG TAB PO PRN (22:30)
[2017-01-01] MEDS ORDERED: MONT10TA2 PO (22:45)
[2017-01-01] MEDS ORDERED: SYMB16INH INH (22:45)
[2017-01-01 23:37] LABS: METHADONE URINE NEGATIVE (NEGATIVE)
[2017-01-02 00:10] VITALS: BP 127/74
[2017-01-02 06:00] VITALS: BP 91/56
[2017-01-02] MEDS: NICOTINE 14 MG/24 HR TRANSDERMAL TD SCH (09:32)
[2017-01-02 18:00] VITALS: BP 136/78
[2017-01-03 06:22] VITALS: BP 120/58
[2017-01-03] MEDS: SYMBICORT 160/4.5MCG INHALER 6GM INH SCH ×2 (09:01→22:16)
[2017-01-03] MEDS: NICOTINE 14 MG/24 HR TRANSDERMAL TD SCH (10:14)
--- NOTE | 2017-01-03 14:50 | MHIPNPDOC ---
[facility] Progress Note Progress Note DATE OF SERVICE: 01/03/17 HISTORY: Patient is 26 year old white female without any past psychiatric or medical history per patient who presented to the [facility] ED 12/31/16 and admitted to the [facility] the same day after locking herself in the bathroom with a knife. She says she's been talking to her ex-boyfriend who has a drug and alcohol problem to help him. Her said he would leave her if she continued to talk to her ex-boyfriend. Says her left for the night on so they could have they to themselves. She says Tuesday she came home from work and had a knife in her purse, she took it into her hand and it was removed by her . He called the [facility] troopers and she was brought to the [facility] ED. She denies having any suicidal or homicidal thoughts at the time, rather an "attention thing", because she felt he was give up on the relationship to easily. She also denied taking any alcohol or drugs prior to the incident. Denies anxiety or depressive symptoms other than feeling "more tired lately. Interval History 01/03/17: Says she's in college and has a test tomorrow. She says she is embarrassed about her actions of "using a knife to seek attention" from her boyfriend. Denies suicidal thoughts or plan. Denies any side effects from her medication. She has been attending groups. VITAL SIGNS: See below. NEW TEST RESULTS: none CURRENT MEDICATIONS: See below. MENTAL STATUS EXAMINATION: Patient is a 26-year old white female, who is NAD, cooperative Speech: Is normal in rate, rhythm and volume. Language skills are Intact Thought processes: linear, logical Thought content: Denies SI, HI, AVH, Paranoia. Abstract reasoning, and computation: Good Description of associations: Good Description of abnormal or psychotic thoughts: none Judgment: fair Insight: fair Orientation: A/O x 3 Recent and remote memory: Good Attention span and concentration: Intact Language: Appropriate Fund of knowledge: Average Mood: "okay", mild anxiety about missing classes Affect: euthymic, constricted, mood-congruent, appropriate DIAGNOSES: 1. Unspecified depressive disorder. Rule out adjustment disorder with depressed mood. ASSESSMENT: Patient denies any symptoms of depression, suicidal ideation, endorses mild anxiety. She may be minimizing her symptoms. A safe discharge plan will be created, patient may be able to leave tomorrow. She was counselled with regards to smoking cessation. MANAGEMENT PLAN: Continue with treatment plan. Continue medications. Monitor for medication side effects. Continue with group therapy sessions. Monitor for safety and suicidal ideations. TIME SPENT: 15 minutes. Vital Signs Vital Signs Date Time Temp Pulse Resp B/P (MAP) Pulse Ox O2 Delivery O2 Flow Rate FiO2 01/03/17 06:22 98.1 84 16 120/58 (78) 01/02/17 06:00 97 Room Air Current Medications Current Medications Acetaminophen (Tylenol Tab) 650 mg Q6HP PRN PO HEADACHE or DISCOMFORT; Start 01/01/17 at 22:30; Stop 01/31/17 at 22:29 Al Hydrox/Mg Hydrox/Simethicone (Mylanta) 30 ml Q4HP PRN PO HEARTBURN/ INDIGESTION; Start 01/01/17 at 22:30; Stop 01/31/17 at 22:29 Budesonide/ Formoterol Fumarate (Symbicort 160/ 4.5mcg) 1 puff BID INH Last administered on 01/03/17 09:01; Start 01/03/17 at 09:00; Stop 02/02/17 at 08 :59 Home Med (Med Rec Complete!) ASDIRECTED XX ; Start 01/01/17 at 23:45; Stop at 23:45; Status DC Magnesium Hydroxide (Milk Of Magnesia) 30 ml DAILYPRN PRN PO CONSTIPATION; Start 01/01/17 at 22:30; Stop 01/31/17 at 22:29 Montelukast Sodium (Singulair) 10 mg QHS PO ; Start 01/03/17 at 21:00; Stop at 20:59 Nicotine (Nicoderm Cq 14mg) 1 patch DAILY TD Last administered on 01/03/17 10 :14; Start 01/02/17 at 09:00; Stop 02/01/17 at 08:59 Trazodone HCl (Desyrel) 50 mg QHSP PRN PO INSOMNIA; Start 01/01/17 at 22:30; Stop 01/31/17 at 22:29 Allergies Coded Allergies: No Known Allergies (Unverified , 11/13/16) LYLY BOND PGY-1 Jan 03, 2017 14:50
--- NOTE | 2017-01-03 15:05 | MHHPE ---
DATE OF ADMISSION: 01/01/2017 LEGAL STATUS AT ADMISSION: 9.39 legal status. CHIEF COMPLAINT: "I locked myself in the bathroom and had a knife." HISTORY OF PRESENT ILLNESS: 26-year-old female with no past psychiatric history admitted to our unit on a 9.39 legal status. According to the chart, patient came to the emergency department after her called the police because she locked herself in the bathroom and had a knife in her hand. Patient is reporting that she and her are having difficulties since she has been "emotionally cheating on him" after her ex-boyfriend, who lives in [place] who had drug problems, had reached out recently, and she feels she needs to help him in spite of the negative consequences in her own life. Her stayed at a friend's house last night. That made her really upset. She realized what she could be losing. When the patient came back home from work, her was home but was not speaking to her. Says that felt "angry with myself" for hurting so many people with my choices. Said that she went to the bathroom, locked herself in, took her purse where she keeps a knife, took the knife and held it. She also sent a text message to her saying that she wanted to end "everyone's misery." Her broke into the locked bathroom and called the police. During the interview at the emergency department, denied any suicidal thoughts. Patient admitted to have depressed feelings, but she denies feeling depressed here on the unit. Says that has recent stressors like working at least 45 hours a week, going to school, and the relationship problem. She has been feeling overwhelmed. During the interview, patient appears somewhat minimizing the symptoms. Patient is denying any suicidal thoughts and is focused on discharge, so she has tendency to deny any symptom or details related to depression. There is no evidence of psychotic symptoms. No auditory or visual hallucinations or delusions. PAST MEDICAL HISTORY: Patient denies any acute medical problem. No known drug allergies. PAST PSYCHIATRIC HISTORY: This is her first admission, never been diagnosed of any psychiatric illness. Patient reports she felt depressed in the past but never had to be treated or diagnosed. FAMILY HISTORY: Patient denies any psychiatric problems in the family. SUBSTANCE ABUSE HISTORY: Patient denies any current or past problems with drugs or alcohol. SOCIAL HISTORY: Patient was raised by both parents. Patient denies abuse or neglect during childhood. Normal school. Graduated high school. 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 She is with no children. Has good support from family and friends. PSYCHIATRIC REVIEW OF SYSTEMS: Bipolar disorder/beth: No evidence of distractibility, grandiosity, flight of ideas, pressured speech. Substance abuse disorder: CAGE questionnaire is negative. Anxiety disorder: Patient feels slightly anxious but no panic, agoraphobia, obsessive-compulsive disorder (OCD), washing hands repeatedly, checking things over and over. Somatization disorder: Screening for pain, conversion, gastrointestinal (GI), or sexual symptoms are negative. Eating disorder: Screening for dieting, use of laxatives, eating in binges is negative. Cognitive disorder: Short- and long-term memory, orientation, and general information is negative for cognitive disorder. Psychotic disorder: No evidence of delusions, paranoia, grandiosity, religions preoccupation. No hallucinations. No looseness of associations. PHYSICAL EXAM: As per physician assignment desk assistant. LABS: CBC is unremarkable. CMP within normal limits, except potassium 3.4. TSH is negative. test is negative. Blood alcohol is negative. Urine drug screen is negative. MENTAL STATUS EXAMINATION: Patient is dressed in [facility]. Patient is cooperative. Speech is clear, coherent with normal rate and is spontaneous. Patient has fair eye contact. Mood is depressed and anxious. Affect is restricted. Patient is oriented to time, place, person, and situation. Maintains attention and concentration correctly. Instant recall, recent, and remote memory are intact. Thought processes are chronological and goal directed. Patient does not have auditory or visual hallucination. Patient does not have paranoid, persecutory, somatic, grandiose, or anabaptist delusions. Patient denies suicidal or homicidal ideation; however, she is focused on discharge. Judgment and insight are limited. DIAGNOSES: [place] I: Unspecified depressive disorder. Rule out adjustment disorder with depressed mood. [place] II: Deferred. [place] III: Nonacute. INITIAL TREATMENT PLAN: Patient was admitted on a 9.39 legal status. Complete history was obtained. With her permission, family will be contacted and database will be expanded. Her medication regimen will be reviewed and changed accordingly. She will be provided with protected environment. She will be treated with individual, group, and milieu therapies. She will also receive supportive psychoeducation. Discharge planning will commence immediately. Length of stay will be between 7 and 10 days. Outpatient followup will be strongly recommended. The treatment plan will focus initially on depression and risk for suicide.
[2017-01-03 18:00] VITALS: BP 134/82
[2017-01-03] MEDS ORDERED: MONTELUKAST 10 MG TAB PO SCH (21:00)
[2017-01-04 06:42] VITALS: BP 114/53
[2017-01-04 07:23] LABS: ANION GAP 4 MEQ/L (8-16); BLOOD UREA NITROGEN 12 MG/DL (7-18); CALCIUM LEVEL 8.5 MG/DL (8.5-10.1); CARBON DIOXIDE LEVEL 32 MEQ/L (21-32); CHLORIDE LEVEL 108 MEQ/L (98-107); CREATININE FOR GFR 0.86 MG/DL (0.55-1.02); GLOMERULAR FILTRATION RATE > 60.0 (>60); GLUCOSE, FASTING 92 MG/DL (70-105); POTASSIUM SERUM 3.9 MEQ/L (3.5-5.1); SODIUM LEVEL 144 MEQ/L (136-145)
[2017-01-04] MEDS: SYMBICORT 160/4.5MCG INHALER 6GM INH SCH (08:29)
[2017-01-04] MEDS: NICOTINE 14 MG/24 HR TRANSDERMAL TD SCH (08:30)
[2017-01-04] MEDS ORDERED: TRAZO50TA PO (11:23)
[2017-01-04] MEDS ORDERED: NICO14PA TD (11:23)
--- NOTE | 2017-01-04 19:16 | MHDSPDOC ---
[facility] Discharge Summary Discharge Summary DATE OF ADMISSION: Jan 01, 2017 at 22:28 DATE OF DISCHARGE: Jan 04, 2017 at 16:15 DISCHARGE DIAGNOSES: 1. Adjustment disorder REASON FOR ADMISSION: HISTORY: Patient is 26 year old white female without any past psychiatric or medical history per patient who presented to the [facility] ED and admitted to the [facility] the same day after locking herself in the bathroom with a knife. She says she's been talking to her ex-boyfriend who has a drug and alcohol problem to help him. Her said he would leave her if she continued to talk to her ex-boyfriend. Says her left for the night on so they could have they to themselves. She says Tuesday she came home from work and had a knife in her purse, she took it into her hand and it was removed by her . He called the [place] troopers and she was brought to the [facility] ED. She denies having any suicidal or homicidal thoughts at the time, rather an "attention thing", because she felt he was give up on the relationship to easily. She also denied taking any alcohol or drugs prior to the incident. Denies anxiety or depressive symptoms other than feeling "more tired lately. Denies HI, AH, VH, beth or other distortions of perception. CONSULTANTS INVOLVED: none TREATMENT AND PROGRESS ON THE UNIT : Patient arrived to the [facility] Emergency Department 12/31/16 was medically cleared and transferred to the [facility] Mental [facility] Unit on 01/01/17 for unspecified depressive disorder. Initial presentation was anxious and depressed with constricted affect. She was started on Trazodone 50 mg orally nightly as needed for insomnia on . 01/02/17 received a nicotine patch 14 mg/24 hours and was counselled for smoking. She improved during her short period of stay and received daily individual and group therapy that helped her with coping. She also received daily management, including but not limited to, sleep evaluations, suicide risk assessments, vital signs, pain assessments and fall risk assessments. She denied side common or rare side effects of her medications during her stay. HOSPITAL COURSE: See above DISCHARGE ASSESSMENT: Patient has improved with regards to mood. She has been attending groups. She denies suicidal ideations or plan. She denies homicidal ideation, auditory/visual hallucinations or other distortions of perception. She denies common and rare side effects of her medications. She feels ready to leave. MENTAL STATUS EXAMINATION: Patient is a 26-year old white female, who is NAD, cooperative Speech: Is normal in rate, rhythm and volume. Language skills are Intact Thought processes: linear, logical Thought content: Denies SI, HI, AVH, Paranoia. Abstract reasoning, and computation: Good Description of associations: Good Description of abnormal or psychotic thoughts: none Judgment: fair Insight: fair Orientation: A/O x 3 Recent and remote memory: Good Attention span and concentration: Intact Language: Appropriate Fund of knowledge: Average Mood: "Good", mild anxiety Affect: euthymic, constricted, mood-congruent, appropriate MEDICATIONS ON DISCHARGE: - Trazodone 50 mg orally nightly as needed for Insomnia - Nicotine Patch 14 mg/24 hours for Nicotine Withdrawal Continued Home Medications: - Symbicort 160-4.5 mcg/act 1 puff twice as day for asthma - Montelukast Sodium 10 mg orally nightly for asthma PLAN/FOLLOWUP ARRANGEMENTS: Follow Up Care Education Label * Medical * Medical Follow Up [facility] * Established With This Provider No * Date Jan 18, 2017 * Time 11:30 * Address of Clinic or Practice [address] [place] [address] * Follow Up Care Education Label * Mental Health Appt 1 * Mental Health [facility] * Established With This Provider No NEW PATIENT APPOINTMENT * Date Jan 11, 2017 * Time 08:00 * Address of Clinic or Practice [address] [place] [address] * The amount of time spent in the coordination of care for this patient was approximately 30 minutes. Vital Signs/I&Os Vital Signs Date Time Temp Pulse Resp B/P (MAP) Pulse Ox O2 Delivery O2 Flow Rate FiO2 01/04/17 06:42 98.4 71 16 114/53 (73) 01/02/17 06:00 97 Room Air Laboratory Data Labs 24H Laboratory Tests 2 01/04/17 06:51: Anion Gap 4L, Glomerular Filtration Rate > 60.0, Blood Urea Nitrogen 12, Creatinine 0.86, Sodium Level 144, Potassium Level 3.9, Chloride Level 108H, Carbon Dioxide Level 32, Calcium Level 8.5 CBC/BMP Laboratory Tests 01/04/17 06:51 Calcium Level 8.5 Medications Scheduled Budesonide/Formoterol (Symbicort 160-4.5 Mcg/Act) 60 Puff/Inhaler Aers, 1 PUFF INH BID, (Reported) Montelukast Sodium (Montelukast Sodium) 10 Mg Tab, 10 MG PO QHS, (Reported) Nicotine (Nicotine Transdermal Syst) 14 Mg/24 Hr Dis, 1 PATCH TD DAILY for SMOKING CESSATION, #10 Scheduled PRN Trazodone HCl (Trazodone HCl) 50 Mg Tab, 50 MG PO QHSP PRN for INSOMNIA, #7 Allergies Coded Allergies: No Known Allergies (Unverified , 11/13/16) LYLY BOND PGY-1 Jan 04, 2017 19:16
--- NOTE | 2017-01-05 06:51 | HPE ---
DATE OF ADMISSION: 01/01/2017 HISTORY OF PRESENT ILLNESS (HPI): Please refer to the psychiatric history and evaluation for further details on this admission. This examination and history is intended for medical issues, which may need treatment, followup or consultation on this 26-year-old female. PRIMARY CARE PROVIDER: Currently has none. ALLERGIES: NO KNOWN ALLERGIES. SOCIAL HISTORY: She is . She rarely drinks alcohol. She smokes one-half pack of cigarettes per day. Recreational drug use none. PAST MEDICAL HISTORY: Asthma. PAST SURGICAL HISTORY: Removal of black bilateral fallopian tubes. HOME MEDICATIONS: - Singulair 10 mg by mouth daily - Symbicort 160/4.5 mcg/act one puff by mouth twice a day FAMILY HISTORY: Noncontributory.. LABORATORY STUDIES: CBC was normal. Sodium 142. Potassium 3.4. Chloride 110. BUN 15. Creatinine 0.79. Beta hCG negative. 10 systems review was done, was unremarkable. Patient had no complaints. Asthma was stable. PHYSICAL EXAMINATION: 26-year-old, cooperative female in no acute disease. Height 63 inches. Weight 90 kg. Body mass index (BMI) 35.1. Patient is alert and oriented times three. Pupils equal and react to light. Extraocular movements (EOM) intact. Cornea and sclerae clear. Conjunctivae is normal. No facial asymmetry. Pharynx, tongue and gum is pink and moist. Tongue is midline. Neck is supple, without lymphadenopathy. No thyromegaly. No goiter. Chest clear to auscultation, without wheeze or retraction. Heart is regular. Abdomen benign. Bowel sounds positive. Genitourinary ()/rectal not done. Extremities show equal strength, full range of motion. No cyanosis, clubbing or edema. Peripheral pulses equal and palpable bilaterally. Skin is warm and dry. IMPRESSION/PLAN: 1. Psychiatric. Plan per psychiatry. 2. Potassium 3.4. Replacement given. Recheck potassium in a.m. 3. No acute medical issues.
== END 2017-01-04 16:15 | disposition home or self-care (01) | DRG 755 ==
LOC: EEVIPCON 18:05 → M ED 18:05 → M ED INP 22:28 → M PSY 01-02 00:10
PROVIDERS: ADMIT Psychiatry & Neurology Psychiatry; ATTEND Psychiatry & Neurology Psychiatry
DX: F43.20 Adjustment disorder, unspecified (principal); F17.210 Nicotine dependence, cigarettes, uncomplicated

== ENCOUNTER → 2017-03-03 | Outpatient (CLI) | payer BC | LOC: M RAD 10:51 | DX: R06.02 Shortness of breath (principal) | CPT/HCPCS: 71250 ==

== ENCOUNTER 2017-10-02 16:41 | Emergency (ER) | payer BC ==
[2017-10-02] MEDS: predniSONE 20 MG TAB PO (17:14)
[2017-10-02] MEDS: AZITHROMYCIN 250 MG TAB PO (17:14)
[2017-10-02] MEDS: IPRATROPIUM 0.5MG/ALBUTEROL 2.5MG INH SOL UD 3ML (DUONEB)(J7620) NEB (17:20)
[2017-10-02] MEDS: ALBUTEROL SULFATE 2.5 MG/0.5 ML INH NEB SOLN NEB (17:20)
== END 2017-10-02 18:12 | disposition home or self-care (01) ==
LOC: M ED 16:41
DX: J18.9 Pneumonia, unspecified organism (principal); J45.909 Unspecified asthma, uncomplicated; F33.9 Major depressive disorder, recurrent, unspecified; F17.210 Nicotine dependence, cigarettes, uncomplicated
CPT/HCPCS: 71046

== ENCOUNTER 2018-04-16 12:08 | Emergency (ER) | payer BC ==
[~2018-04-16] VITALS: Ht 160 cm; Wt 88.6 kg
[~2018-04-16 12:08] MED LIST changes: +ALBU83IN NEB; +GUAI1SOL7 PO; -GUAI5ELAC PO; -LEVA1TAB PO; +LEVA250T13 PO; +NICO14PA TD; +PRED20TA PO; +PROAAER10 INH; +TRAZO50TA PO; +VENTAER INH; +ZITHTAB PO
[2018-04-16 13:00] LABS: INFLUENZA A AMPLIFICATION NEGATIVE (NEGATIVE); INFLUENZA B AMPLIFICATION NEGATIVE (NEGATIVE)
[2018-04-16] MEDS ORDERED: IPRATROPIUM 0.5MG/ALBUTEROL 2.5MG INH SOL UD 3ML (DUONEB)(J7620) NEB ONE (13:45)
[2018-04-16] MEDS ORDERED: IBUPROFEN 800 MG TAB PO ONE (13:45)
[2018-04-16] MEDS ORDERED: ZITHTAB PO (14:49)
[2018-04-16] MEDS ORDERED: ALBU83IN NEB (14:50)
[2018-04-16 15:04] VITALS: BP 118/61
--- NOTE | 2018-04-17 08:19 | REP ---
CHEST: Two views. There is no evidence of acute infiltrate. No pleural effusion is seen. The heart is normal in size. The mediastinal silhouette is unremarkable. The visualized osseous structures are intact. IMPRESSION: No acute pulmonary disease. Electronically Signed by Ramin Palacio MD 04/17/2018 10:34 P
== END 2018-04-16 15:05 | disposition home or self-care (01) ==
LOC: M ED 12:08
DX: J06.9 Acute upper respiratory infection, unspecified (principal); J45.909 Unspecified asthma, uncomplicated; F41.9 Anxiety disorder, unspecified; F17.200 Nicotine dependence, unspecified, uncomplicated; Z87.01 Personal history of pneumonia (recurrent)

== ENCOUNTER → 2019-01-30 | Outpatient (CLI) | payer BC ==
[~2019-01-30] MED LIST changes: +TRAZ1TAB10 PO; -TRAZO50TA PO
--- NOTE | 2019-01-30 19:58 | REP ---
RIGHT FOOT, FOUR VIEWS: There is no evidence of an acute fracture, dislocation or intrinsic bone disease. IMPRESSION: No fracture or dislocation. Electronically Signed by Ramin Palacio MD 01/31/2019 10:01 A
== END ==
LOC: M WUC 17:38
PROVIDERS: ATTEND Physician Assistant
DX: M25.571 Pain in right ankle and joints of right foot (principal)

== ENCOUNTER → 2019-04-08 | Outpatient (REF) | payer BC | LOC: M SFHCLERA 09:48 | PROVIDERS: ATTEND Physician Assistant | DX: R53.81 Other malaise (principal); R50.9 Fever, unspecified ==

== ENCOUNTER → 2019-04-12 | Outpatient (CLI) | payer BC ==
[~2019-04-12] MED LIST changes: -MONT10TA2 PO; +MONT10TA4 PO
--- NOTE | 2019-04-12 18:37 | REP ---
PA and lateral chest: Comparison is 04/16/2018. The lung roca are clear. The cardiac size is normal. The matt, mediastinum, and skeletal structures are unremarkable. Impression: Negative PA and lateral chest. There is no interval change. Electronically Signed by Ramin Urrutia MD 04/12/2019 06:28 P
== END ==
LOC: M LRY 18:07
PROVIDERS: ATTEND Physician Assistant Medical
DX: R05 Cough (principal)

== ENCOUNTER 2019-06-28 15:56 | Emergency (ER) | payer BC ==
[~2019-06-28] VITALS: Ht 157.5 cm; Wt 89.9 kg
[2019-06-28] MEDS ORDERED: KETOROLAC 30 MG/ML 1ML VIAL IV ONE (16:30)
[2019-06-28] MEDS ORDERED: NS 1,000 ML IV ONE (16:30)
[2019-06-28] MEDS ORDERED: ONDANSETRON 4MG/2ML VIAL IV ONE (16:30)
[2019-06-28 16:58] LABS: BASO % 0.2 % (0.0-1.0); EOS # 0.1 10^3/uL (0.0-0.5); EOS % 0.8 % (0.0-3.0); HEMOGLOBIN 13.9 g/dl (12.0-15.5); LYMPH # 2.1 10^3/uL (1.5-5.0); LYMPH % 21.5 % (24.0-44.0); MEAN CORPUSCULAR HEMOGLOBIN 30.3 pg (27.0-33.0); MEAN CORPUSCULAR HGB CONC 34.8 g/dl (32.0-36.5); MEAN CORPUSCULAR VOLUME 87.3 fl (80.0-96.0); MONO # 0.8 10^3/uL (0.0-0.8); MONO % 8.3 % (0.0-5.0); NEUTROPHILS # 6.9 10^3/uL (1.5-8.5); NEUTROPHILS % 68.9 % (36.0-66.0); PLATELET COUNT, AUTOMATED 328 10^3/uL (150-450); RED BLOOD COUNT 4.58 10^6/uL (4.00-5.40)
[2019-06-28 17:26] LABS: ALBUMIN 4.1 GM/DL (3.2-5.2); BILIRUBIN,DIRECT 0.2 MG/DL (0.0-0.2); BILIRUBIN,TOTAL 0.4 MG/DL (0.2-1.0); TOTAL PROTEIN 7.1 GM/DL (6.4-8.2)
[2019-06-28] MEDS ORDERED: MORPHINE 4 MG/ML 1ML VIAL/SYRINGE (J2270) IV ONE (18:00)
--- NOTE | 2019-06-28 18:01 | REPVR ---
PROCEDURE INFORMATION: Exam: CT Abdomen And Pelvis Without Contrast Exam date and time: 06/28/2019 5:25 PM Age: 28 years old Clinical indication: Abdominal pain; Flank; Right; Additional info: Right flank pain, renal colic TECHNIQUE: Imaging protocol: Computed tomography of the abdomen and pelvis without contrast. Radiation optimization: All CT scans at this facility use at least one of these dose optimization techniques: automated exposure control; mA and/or kV adjustment per patient size (includes targeted exams where dose is matched to clinical indication); or iterative reconstruction. COMPARISON: US PELVIC NON-OB COMPLETE 09/25/2015 7:18 PM FINDINGS: Liver: Normal. No mass. Gallbladder and bile ducts: Normal. No calcified stones. No ductal dilation. Pancreas: Normal. No ductal dilation. Spleen: Normal. No splenomegaly. Adrenals: Normal. No mass. Kidneys and ureters: Mild left-sided nephrolithiasis measuring up to 3 mm. Mild right-sided hydroureteronephrosis secondary to 3 mm by 3 mm calculus at the distal right ureter. Stomach and bowel: Unremarkable. No obstruction. No mucosal thickening. Appendix: No evidence of appendicitis. Intraperitoneal space: Unremarkable. No free air. No significant fluid collection. Vasculature: Unremarkable. No abdominal aortic aneurysm. Lymph nodes: Unremarkable. No enlarged lymph nodes. Bladder: Unremarkable as visualized. Reproductive: Unremarkable as visualized. Bones/joints: Unremarkable. No acute fracture. Soft tissues: Small fat containing umbilical hernia. IMPRESSION: Mild right-sided hydroureteronephrosis secondary to 3 mm by 3 mm calculus at the distal right ureter. Electronically signed by: Preston Rodriguez On 06/28/2019 18:01:14 PM
[2019-06-28] MEDS ORDERED: FLOM0.4C39 PO (18:38)
[2019-06-28] MEDS ORDERED: NORC1TAB7 PO (18:38)
[2019-06-28] MEDS ORDERED: IBUP80TA PO (18:38)
[2019-06-28] MEDS ORDERED: ONDA4TAB6 PO (18:38)
[2019-06-28] MEDS ORDERED: cefTRIAXone SOD 1 GM in D5W MINI-BAG PLUS 50 ML IV ONE (18:45)
[2019-06-28 19:47] VITALS: BP 141/88
== END 2019-06-28 19:48 | disposition home or self-care (01) ==
LOC: M ED 15:56
DX: N20.1 Calculus of ureter (principal); B96.1 Klebsiella pneumoniae [K. pneumoniae] as the cause of diseases classified elsewhere; F17.218 Nicotine dependence, cigarettes, with other nicotine-induced disorders
CPT/HCPCS: 74176; 80047; 80076; 81001; 84702; 85025; 87088; 87186; 96361; 96365; 96375; 99284; J0696; J1885; J2270; J2405

== ENCOUNTER → 2019-12-23 | Outpatient (CLI) | payer BC ==
[~2019-12-23] MED LIST changes: +FLOM0.4C39 PO; +FLUO20CA22; +IBUP80TA PO; +NORC1TAB7 PO; +ONDA4TAB6 PO
== END ==
LOC: M LABSMTC 08:26
PROVIDERS: ATTEND Anesthesiology
DX: Z01.812 Encounter for preprocedural laboratory examination (principal); Z20.828 Contact with and (suspected) exposure to other viral communicable diseases
CPT/HCPCS: C9803; U0003

== ENCOUNTER → 2019-12-24 | Outpatient (CLI) | payer BC ==
[2019-12-24 07:57] LABS: BASO % 0.4 % (0.0-1.0); EOS # 0.2 10^3/uL (0.0-0.5); EOS % 4.3 % (0.0-3.0); HEMATOCRIT 43.5 % (36.0-47.0); HEMOGLOBIN 14.2 g/dl (12.0-15.5); LYMPH # 2.5 10^3/uL (1.5-5.0); LYMPH % 49.2 % (24.0-44.0); MEAN CORPUSCULAR HEMOGLOBIN 29.8 pg (27.0-33.0); MEAN CORPUSCULAR HGB CONC 32.6 g/dl (32.0-36.5); MEAN CORPUSCULAR VOLUME 91.2 fl (80.0-96.0); MONO # 0.4 10^3/uL (0.0-0.8); MONO % 8.2 % (0.0-5.0); NEUTROPHILS # 1.9 10^3/uL (1.5-8.5); NEUTROPHILS % 37.7 % (36.0-66.0); PLATELET COUNT, AUTOMATED 224 10^3/uL (150-450); RED BLOOD COUNT 4.77 10^6/uL (4.00-5.40); WHITE BLOOD COUNT 5.1 10^3/uL (4.0-10.0)
[2019-12-24 08:14] LABS: BLOOD UREA NITROGEN 10 MG/DL (7-18); CALCIUM LEVEL 8.3 MG/DL (8.5-10.1); CARBON DIOXIDE LEVEL 29 MEQ/L (21-32); CHLORIDE LEVEL 108 MEQ/L (98-107); CREATININE FOR GFR 0.78 MG/DL (0.55-1.30); GLOMERULAR FILTRATION RATE > 60.0 (>60); GLUCOSE, FASTING 88 MG/DL (70-100); POTASSIUM SERUM 3.8 MEQ/L (3.5-5.1); SODIUM LEVEL 141 MEQ/L (136-145)
== END ==
LOC: M LAB 07:30
PROVIDERS: ATTEND Podiatrist
DX: Z01.812 Encounter for preprocedural laboratory examination (principal); M72.2 Plantar fascial fibromatosis; M79.672 Pain in left foot

== ENCOUNTER 2019-12-28 06:55 | Day surgery (SDC) | payer BC ==
[~2019-12-28] VITALS: Ht 157.5 cm; Wt 81.6 kg
[2019-12-28] MEDS ORDERED: LR 1,000 ML IV ONE (07:00)
[2019-12-28] MEDS ORDERED: ceFAZolin SOD 2 GM in IV 1 EA IV ONE (07:00)
[2019-12-28] MEDS ORDERED: dexameTHASONE 4 MG/ML 1ML VIAL (J1100 PER 1MG) As Ordered ONE ×2 (07:16→08:04)
[2019-12-28] MEDS ORDERED: BACITRACIN PWD 50,000 UNITS VIAL As Ordered ONE (07:16)
[2019-12-28] MEDS ORDERED: NEOSPORIN GU IRRIG 20 ML VIAL As Ordered ONE (07:16)
[2019-12-28] MEDS ORDERED: LIDOCAINE 2% MDV 20ML VIAL As Ordered ONE (07:16)
[2019-12-28] MEDS ORDERED: BUPIVACAINE HCL 0.5% 30 ML VIAL As Ordered ONE (07:16)
[2019-12-28] MEDS ORDERED: propofoL 200 MG/20 ML VIAL As Ordered ONE (07:18)
[2019-12-28] MEDS ORDERED: ONDANSETRON 4MG/2ML VIAL As Ordered ONE (07:18)
[2019-12-28] MEDS ORDERED: LIDOCAINE 2% 100MG/5ML SDV (FOR ANES.) As Ordered ONE (07:18)
[2019-12-28] MEDS ORDERED: MIDAZOLAM INJ 2MG/2ML VIAL (J2250 PER 1MG) As Ordered ONE (07:19)
[2019-12-28] MEDS ORDERED: fentaNYL 100 MCG/2 ML INJECTION (J3010) As Ordered ONE (07:19)
[2019-12-28] MEDS ORDERED: KETOROLAC 60MG 2ML VIAL As Ordered ONE (08:04)
[2019-12-28] MEDS ORDERED: LACRILUBE (AKWA TEARS) OPHTH OINT 3.5 GM As Ordered ONE (08:10)
[2019-12-28 09:30] VITALS: BP 108/61
--- NOTE | 2019-12-31 08:56 | RO ---
DATE OF OPERATION: 12/28/2019 PREOPERATIVE DIAGNOSIS: Plantar fasciitis left foot. POSTOPERATIVE DIAGNOSIS: Plantar fasciitis left foot. PROCEDURE: Endoscopic plantar fasciotomy left foot. ANESTHESIA: Local MAC. IRRIGATION: Dilute Bacitracin, Neomycin and Polymyxin B solution. HEMOSTASIS: Ankle pneumatic tourniquet at 250 mmHg on left ankle for 15 minutes. DESCRIPTION OF OPERATION: On 12/28/2019 this 29-year-old white female was taken hospital room to the operating room and placed on the operating table in supine position. Following induction of IV sedation and local regional anesthesia the left lower extremity was prepped and draped in usual aseptic manner. Attention was directed to the patients left foot where the intraoperative ultrasound image was evaluated and a 5 mm incision was placed vertically just distal to the insertion point in the plantar fascia on the medial tuberosity of the calcaneus. This incision was then deepened with dissection scissors and tunnel was created inferior to the plantar fascia. Tissue distender was then utilized to expand the tunnel. An [employer] endoscopic plantar fasciotomy blade was then introduced into the wound and under direct visualization slightly greater than of the plantar fascia was transected under direct visualization exposing the first layer of muscle. The endoscope blade was removed; the wound was flushed with copious amounts of Bacitracin, Neomycin and Polymyxin B solution. The deep wound was closed with 4-0 Vicryl in simple interrupted fashion. Skin incision was coapted and maintained with 4-0 Prolene in horizontal mattress fashion. Following completion of surgical procedure 4 mg Dexamethasone Sodium Phosphate with 0.5 mL of 0.5% Marcaine was instilled along the surgical site. Attention was directed towards bandaging. A sterile compressive bandage was applied consisting of Adaptic, 4 x 4's, 4 x 4 splints, Weston and Coban. Ankle pneumatic tourniquet was rapidly deflated and instantaneous capillary filling time was noted to digits 1- 5 of the patient's left foot. The patient, having apparently tolerated the surgical procedure well, was taken from the OR to the recovery room for further monitoring by the anesthesia department. Postoperative instructions were given upon discharge. USAMA
== END 2019-12-28 09:51 | disposition home or self-care (01) ==
LOC: M SDC 06:55
PROVIDERS: ATTEND Podiatrist
DX: M72.2 Plantar fascial fibromatosis (principal); J45.909 Unspecified asthma, uncomplicated; F32.9 Major depressive disorder, single episode, unspecified; F41.9 Anxiety disorder, unspecified; F17.218 Nicotine dependence, cigarettes, with other nicotine-induced disorders; Z79.899 Other long term (current) drug therapy
CPT/HCPCS: 29893; J0690; J1100; J1885; J2250; J2405; J3010

== ENCOUNTER → 2020-11-29 | Outpatient (CLI) | payer BC ==
[~2020-11-29] MED LIST changes: +MONT10TA10 PO; -MONT10TA4 PO
[2020-11-29 12:05] LABS: HEMATOCRIT 42.5 % (36.0-47.0); MEAN CORPUSCULAR HEMOGLOBIN 29.9 pg (27.0-33.0); MEAN CORPUSCULAR HGB CONC 32.9 g/dl (32.0-36.5); MEAN CORPUSCULAR VOLUME 90.8 fl (80.0-96.0); PLATELET COUNT, AUTOMATED 276 10^3/uL (150-450); RED BLOOD COUNT 4.68 10^6/uL (4.00-5.40); WHITE BLOOD COUNT 4.5 10^3/uL (4.0-10.0)
[2020-11-29 12:41] LABS: HEMOGLOBIN A1c 5.4 %
[2020-11-29 12:42] LABS: ALBUMIN 3.5 GM/DL (3.2-5.2); ALT/SGPT 22 U/L (12-78); BILIRUBIN,TOTAL 0.3 MG/DL (0.2-1.0); BLOOD UREA NITROGEN 9 MG/DL (7-18); CALCIUM LEVEL 8.6 MG/DL (8.5-10.1); CARBON DIOXIDE LEVEL 28 MEQ/L (21-32); CHLORIDE LEVEL 109 MEQ/L (98-107); CREATININE FOR GFR 0.72 MG/DL (0.55-1.30); GLOMERULAR FILTRATION RATE > 60.0 (>60); GLUCOSE, FASTING 83 MG/DL (70-100); HCG, SERUM QUANTITATIVE < 1.0 MIU/ML; POTASSIUM SERUM 4.3 MEQ/L (3.5-5.1); SODIUM LEVEL 141 MEQ/L (136-145); TOTAL PROTEIN 6.7 GM/DL (6.4-8.2)
[2020-12-01 10:56] LABS: TOTAL 25(OH) VITAMIN D 14.4 NG/ML (30.0-100.0)
[2020-12-01 10:57] LABS: TESTOSTERONE 18 NG/DL (14-76)
[2020-12-01 11:01] LABS: PROLACTIN 5.7 NG/ML
[2020-12-01 11:02] LABS: ESTRADIOL 41.6 PG/ML
[2020-12-01 11:03] LABS: PROGESTERONE 0.21 NG/ML
[2020-12-01 11:14] LABS: HEPATITIS B SURFACE ANTIGEN NEGATIVE (NEGATIVE)
[2020-12-01 11:43] LABS: HIV 1&2 SCREEN CENTAUR NEGATIVE (NEGATIVE)
== END ==
LOC: M LAB 11:39
PROVIDERS: ATTEND Obstetrics & Gynecology Reproductive Endocrinology
DX: Z31.41 Encounter for fertility testing (principal)

== ENCOUNTER → 2020-12-24 | Outpatient (REF) | payer BC | LOC: M LAB REF 20:55 | PROVIDERS: ATTEND Physician Assistant | DX: R09.81 Nasal congestion (principal) ==

== ENCOUNTER → 2021-03-18 | Outpatient (REF) | payer BC ==
[~2021-03-18] MED LIST changes: -LEVO250T12 PO; +LEVO250T3 PO; -MONT10TA10 PO; +MONT10TA97 PO
== END ==
LOC: M LAB REF 17:08
PROVIDERS: ATTEND Family Medicine
DX: J06.9 Acute upper respiratory infection, unspecified (principal); Z20.822 Contact with and (suspected) exposure to COVID-19

== ENCOUNTER → 2022-08-04 | Outpatient (REF) | payer BC ==
[~2022-08-04] MED LIST changes: +ALBU2.5V10 NEB; -ALBU83IN NEB; +LEVO1TAB38 PO; -LEVO250T3 PO
== END ==
LOC: M LAB REF 17:03
PROVIDERS: ATTEND Physician Assistant
DX: N39.0 Urinary tract infection, site not specified (principal)

== ENCOUNTER → 2022-08-05 | Outpatient (CLI) | payer BC ==
[2022-08-05 14:02] LABS: BASO % 0.5 % (0.0-1.0); EOS # 0.2 10^3/uL (0.0-0.5); EOS % 2.8 % (0.0-3.0); HEMATOCRIT 41.1 % (36.0-47.0); HEMOGLOBIN 13.4 g/dl (12.0-15.5); LYMPH # 2.1 10^3/uL (1.5-5.0); LYMPH % 35.2 % (24.0-44.0); MEAN CORPUSCULAR HEMOGLOBIN 30.1 pg (27.0-33.0); MEAN CORPUSCULAR HGB CONC 32.6 g/dl (32.0-36.5); MEAN CORPUSCULAR VOLUME 92.4 fl (80.0-96.0); MONO # 0.5 10^3/uL (0.0-0.8); MONO % 8.7 % (2.0-8.0); NEUTROPHILS # 3.1 10^3/uL (1.5-8.5); NEUTROPHILS % 52.6 % (36.0-66.0); PLATELET COUNT, AUTOMATED 247 10^3/uL (150-450); RED BLOOD COUNT 4.45 10^6/uL (4.00-5.40)
[2022-08-05 14:22] LABS: ERYTHROCYTE SEDIMENTATION RATE 6 mm/hr (0-20)
[2022-08-05 14:31] LABS: C REACTIVE PROTEIN QUANTITATIV < 0.40 MG/DL (<1.0); LIPASE 31 U/L (12-53)
[2022-08-05 14:32] LABS: MONO REFLEX EBV COMP NEGATIVE (NEGATIVE)
[2022-08-05 14:33] LABS: ALBUMIN 3.7 G/DL (3.2-5.2); ALKALINE PHOSPHATASE 59 U/L (46-116); ALT/SGPT 19 U/L (7.0-40); AST/SGOT 15 U/L (<34); BILIRUBIN,DIRECT < 0.1 MG/DL (<0.4); BILIRUBIN,TOTAL 0.2 MG/DL (0.3-1.2); BLOOD UREA NITROGEN 13 MG/DL (9-23); CALCIUM LEVEL 8.9 MG/DL (8.5-10.1); CARBON DIOXIDE LEVEL 28 MMOL/L (20-31); CHLORIDE LEVEL 105 MMOL/L (98-107); CREATININE FOR GFR 0.79 MG/DL (0.55-1.30); GLOMERULAR FILTRATION RATE > 60.0 (>60); GLUCOSE, FASTING 79 MG/DL (60-100); POTASSIUM SERUM 4.2 MMOL/L (3.5-5.1); SODIUM LEVEL 138 MMOL/L (136-145); TOTAL PROTEIN 6.3 G/DL (5.7-8.2)
[2022-08-06 14:10] LABS: EBV VIRAL CAPSID AG IgM <36.0 U/mL (0.0-35.9)
== END ==
LOC: M LAB 13:28
PROVIDERS: ATTEND Physician Assistant
DX: M79.10 Myalgia, unspecified site (principal); R53.83 Other fatigue

== ENCOUNTER → 2023-08-03 | Outpatient (CLI) | payer BC | LOC: M LAB 11:44 | PROVIDERS: ATTEND Obstetrics & Gynecology | DX: Z32.00 Encounter for pregnancy test, result unknown (principal) ==

== ENCOUNTER → 2024-09-05 | Outpatient (REF) | payer BC ==
[~2024-09-05] MED LIST changes: -FLOM0.4C39 PO; +FLUO-365; -FLUO20CA22; +ONDA-282 PO; -ONDA4TAB6 PO; +TAMS-18 PO
[2024-09-05 14:08] LABS: APPEARANCE, URINE CLOUDY (CLEAR); BACTERIA, URINE AUTO 3+ (NEGATIVE); BILIRUBIN, URINE AUTO NEGATIVE (NEGATIVE); BLOOD, URINE BLOOD NEGATIVE (NEGATIVE); CALCIUM OXALATE CRYSTALS SMALL; GLUCOSE, URINE (UA) AUTO NEGATIVE (NEGATIVE); KETONE, URINE AUTO NEGATIVE (NEGATIVE); LEUKOCYTE ESTERASE, URINE AUTO NEGATIVE (NEGATIVE); MUCUS, URINE SMALL (NEGATIVE); NITRITE, URINE AUTO NEGATIVE (NEGATIVE); PROTEIN, URINE AUTO 1+ mg/dL (NEGATIVE); RBC, URINE AUTO 6 /HPF (0-3); SPECIFIC GRAVITY URINE AUTO 1.020 (1.002-1.035); SQUAMOUS EPITHELIAL CELL UR AU 27 /HPF (0-6); UROBILINOGEN, URINE AUTO 0.2 mg/dL (0.0-2.0); WBC, URINE AUTO 7 /HPF (0-3)
[2024-09-05 15:09] LABS: Trichomonas vaginalis (AMP) NOT DETECTED (NEGATIVE)
[2024-09-05 15:32] LABS: GC DNA AMPLIFICATION NEGATIVE (NEGATIVE)
== END ==
LOC: M SFHCWAGY 12:39
PROVIDERS: ATTEND Obstetrics & Gynecology
DX: R10.9 Unspecified abdominal pain (principal); Z34.80 Encounter for supervision of other normal pregnancy, unspecified trimester

== ENCOUNTER → 2024-10-02 | Outpatient (CLI) | payer BC ==
[2024-10-02 14:36] LABS: PLATELET COUNT, AUTOMATED 225 10^3/uL (150-450)
[2024-10-02 15:33] LABS: HIV 1&2 SCREEN NEGATIVE (NEGATIVE)
[2024-10-02 15:41] LABS: HEPATITIS C VIRUS ABY INDEX < 0.02 INDEX (<0.8)
== END ==
LOC: M LAB 13:59
PROVIDERS: ATTEND Obstetrics & Gynecology
DX: Z34.80 Encounter for supervision of other normal pregnancy, unspecified trimester (principal)

== ENCOUNTER → 2024-10-18 | Outpatient (CLI) | payer BC | LOC: M WHC 10:08 | PROVIDERS: ATTEND Obstetrics & Gynecology | DX: Z36.89 Encounter for other specified antenatal screening (principal); Z3A.19 19 weeks gestation of pregnancy ==

== ENCOUNTER → 2024-10-29 | Outpatient (REF) | payer BC | LOC: M SFHCWAGY 10:21 | PROVIDERS: ATTEND Obstetrics & Gynecology | DX: Z34.80 Encounter for supervision of other normal pregnancy, unspecified trimester (principal) ==

== ENCOUNTER → 2024-11-27 | Outpatient (CLI) | payer BC | LOC: M WHC 07:04 | PROVIDERS: ATTEND Obstetrics & Gynecology | DX: Z34.82 Encounter for supervision of other normal pregnancy, second trimester (principal); Z3A.25 25 weeks gestation of pregnancy ==

== ENCOUNTER → 2024-12-26 | Outpatient (CLI) | payer BC ==
[2024-12-26 13:09] LABS: PLATELET COUNT, AUTOMATED 209 10^3/uL (150-450)
[2024-12-26 13:44] LABS: GLUCOSE CHALLENGE TEST 1 HOUR 121 MG/DL (LESS THAN 140)
[2024-12-26 14:55] LABS: Trichomonas vaginalis (AMP) NOT DETECTED (NEGATIVE)
[2024-12-26 15:19] LABS: GC DNA AMPLIFICATION NEGATIVE (NEGATIVE)
[2024-12-26 18:02] LABS: HIV 1&2 SCREEN NEGATIVE (NEGATIVE)
[2024-12-26 18:10] LABS: HEPATITIS C VIRUS ABY INDEX < 0.02 INDEX (<0.8)
== END ==
LOC: M PLALAB 09:51
PROVIDERS: ATTEND Nurse Practitioner Family
DX: O09.812 Supervision of pregnancy resulting from assisted reproductive technology, second trimester (principal)

== ENCOUNTER 2025-02-05 21:01 | Outpatient (CLI) | payer BC ==
[~2025-02-05] VITALS: Ht 157.5 cm; Wt 99.6 kg
[2025-02-05 21:25] VITALS: BP 117/73; O2SAT 98
[2025-02-05] MEDS ORDERED: HOME MED LIST COMPLETE! XX SCH (21:45)
[2025-02-05] MEDS: LR 1,000 ML IV ONE (22:05)
[2025-02-05] MEDS: BETAMETHASONE SOLUSPAN 6 MG/ML 5 ML VIAL IM SCH (22:09)
[2025-02-05 22:38] LABS: APPEARANCE, URINE HAZY (CLEAR); BACTERIA, URINE AUTO 2+ (NEGATIVE); BILIRUBIN, URINE AUTO NEGATIVE (NEGATIVE); BLOOD, URINE BLOOD NEGATIVE (NEGATIVE); GLUCOSE, URINE (UA) AUTO NEGATIVE (NEGATIVE); KETONE, URINE AUTO 1+ mg/dL (NEGATIVE); LEUKOCYTE ESTERASE, URINE AUTO NEGATIVE (NEGATIVE); MUCUS, URINE SMALL (NEGATIVE); NITRITE, URINE AUTO NEGATIVE (NEGATIVE); PROTEIN, URINE AUTO NEGATIVE (NEGATIVE); RBC, URINE AUTO 1 /HPF (0-3); SPECIFIC GRAVITY URINE AUTO 1.014 (1.002-1.035); SQUAMOUS EPITHELIAL CELL UR AU 4 /HPF (0-6); UROBILINOGEN, URINE AUTO 0.2 mg/dL (0.0-2.0); WBC, URINE AUTO 4 /HPF (0-3)
[2025-02-05] MEDS: LR 1,000 ML IV SCH (23:05)
[2025-02-06 06:31] VITALS: BP 128/77
[2025-02-06 07:51] VITALS: BP 122/58
[2025-02-06] MEDS ORDERED: PRENTAB9 PO (21:30)
[2025-02-06] MEDS ORDERED: OMEP10CASR PO (21:30)
== END 2025-02-06 08:25 | disposition home or self-care (01) ==
LOC: M LDO 21:01
PROVIDERS: ATTEND Student in an Organized Health Care Education/Training Program
DX: O47.03 False labor before 37 completed weeks of gestation, third trimester (principal); O09.813 Supervision of pregnancy resulting from assisted reproductive technology, third trimester; O09.513 Supervision of elderly primigravida, third trimester; Z3A.34 34 weeks gestation of pregnancy
CPT/HCPCS: 59025; 81001; 87086; 96360; 96361; 96372; G0463; J0702

== ENCOUNTER 2025-02-06 21:04 | Outpatient (CLI) | payer BC ==
[~2025-02-06] VITALS: Ht 157.5 cm; Wt 101.2 kg
[2025-02-06 21:22] VITALS: BP 119/75
[2025-02-06] MEDS: BETAMETHASONE SOLUSPAN 6 MG/ML 5 ML VIAL IM ONE (21:24)
[2025-02-06] MEDS ORDERED: PRENTAB9 PO (21:30)
[2025-02-06] MEDS ORDERED: OMEP10CASR PO (21:30)
[2025-02-06] MEDS ORDERED: HOME MED LIST COMPLETE! XX SCH (21:40)
== END 2025-02-06 21:32 | disposition home or self-care (01) ==
LOC: M LDO 21:04
PROVIDERS: ATTEND Advanced Practice Midwife
DX: O47.03 False labor before 37 completed weeks of gestation, third trimester (principal); Z3A.34 34 weeks gestation of pregnancy
CPT/HCPCS: 96372; J0702

== ENCOUNTER → 2025-02-08 | Outpatient (CLI) | payer BC ==
[~2025-02-08] MED LIST changes: +OMEP10CASR PO; +PRENTAB9 PO
== END ==
LOC: M WHC 10:19
PROVIDERS: ATTEND Advanced Practice Midwife
DX: O09.523 Supervision of elderly multigravida, third trimester (principal)

== ENCOUNTER → 2025-02-13 | Outpatient (REF) | payer BC | LOC: M SFHCWAGY 12:59 | PROVIDERS: ATTEND Advanced Practice Midwife | DX: O09.523 Supervision of elderly multigravida, third trimester (principal); Z36.85 Encounter for antenatal screening for Streptococcus B ==

== ENCOUNTER 2025-03-03 16:11 | Outpatient (CLI) | payer BC ==
[~2025-03-03] VITALS: Ht 157.5 cm; Wt 102.9 kg
[2025-03-03 16:32] VITALS: BP 120/83
[2025-03-03] MEDS ORDERED: ACET-897 PO (16:35)
[2025-03-03] MEDS ORDERED: OMEP-173 PO (16:36)
[2025-03-03 16:49] VITALS: BP 131/88
[2025-03-03 17:00] LABS: PLATELET COUNT, AUTOMATED 179 10^3/uL (150-450)
[2025-03-03 17:03] VITALS: BP 123/83
[2025-03-03 17:19] VITALS: BP 125/86
[2025-03-03 17:19] LABS: TOTAL PROTEIN,RANDOM URINE 33.5 MG/DL (0.0-14.0)
[2025-03-03 17:25] LABS: ALT/SGPT 14 U/L (7.0-40); AST/SGOT 19 U/L (<34); CALCIUM LEVEL 8.3 MG/DL (8.5-10.1); CARBON DIOXIDE LEVEL 21 MMOL/L (20-31); CHLORIDE LEVEL 107 MMOL/L (98-107); CREATININE FOR GFR 0.64 MG/DL (0.55-1.30); GLOMERULAR FILTRATION RATE > 90.0 (>60); POTASSIUM SERUM 3.5 MMOL/L (3.5-5.1); SODIUM LEVEL 139 MMOL/L (136-145)
[2025-03-03 17:34] VITALS: BP 138/87
[2025-03-03 17:50] VITALS: BP 141/83
== END 2025-03-03 18:01 | disposition home or self-care (01) ==
LOC: M LDO 16:11
PROVIDERS: ATTEND Obstetrics & Gynecology
DX: O26.893 Other specified pregnancy related conditions, third trimester (principal); O09.513 Supervision of elderly primigravida, third trimester; O09.813 Supervision of pregnancy resulting from assisted reproductive technology, third trimester; R03.0 Elevated blood-pressure reading, without diagnosis of hypertension; Z3A.38 38 weeks gestation of pregnancy
CPT/HCPCS: 36415; 59025; 80053; 82570; 84156; 85027; G0463